=== PATIENT | female | born 1950 | race Caucasian/White ===

== ENCOUNTER 2017-11-04 07:19 | Emergency (ER) | payer OTHER ==
--- OUTSIDE RECORDS SUMMARY | 2017-11-04 07:21 | XMS REPORT ---
:1950 Author Organization eClinicalWorks Care Team Providers Name Role Phone Butts, Na Provider Role Unavailable Allergies No Known Allergies Problems Problem Type Condition Code Onset Dates Condition Status Problem Hiatal hernia K44.9 Active Problem Weight gain R63.5 Active Problem Chronic kidney disease (CKD) N18.9 Active Problem Mixed hyperlipidemia E78.2 Active Problem Essential tremor G25.0 Active Problem Former smoker Z87.891 Active Problem Diverticulitis of large intestine K57.32 Active without perforation or abscess without bleeding Problem DERICK positive R76.8 Active Problem Elevated antinuclear antibody (DERICK) R76.8 Active level Problem Esophageal stenosis K22.2 Active Problem Hyperlipidemia E78.5 Active Problem Obstructive sleep apnea G47.33 Active Problem Osteopenia M85.80 Active Problem Gastro-esophageal reflux disease K21.9 Active without esophagitis Problem Sexual dysfunction R37 Active Problem Depression with anxiety F41.8 Active Medications Medication Code System Code Instructions Start Date End Date Status Dosage Zetia [facility] 00767823754 10 MG Orally Once Apr 03, Active 1 tablet a day 2017 Results No Known Results Summary Purpose eClinicalWorks Submission
--- OUTSIDE RECORDS SUMMARY | 2017-11-04 07:21 | XMS REPORT ---
[...] with anxiety F41.8 Active Medications Medication Code Code Instructions Start End Date Status Dosage System Date Simvastatin [facility] 55739722041 10 MG Orally September 19, Active 1 tablet in Once a day 2018 the evening Results No Known Results Summary Purpose eClinicalWorks Submission
--- OUTSIDE RECORDS SUMMARY | 2017-11-04 07:21 | XMS REPORT ---
[...] Problem Depression with anxiety F41.8 Active Medications No Known Medications Results No Known Results Summary Purpose [employer] Submission
--- OUTSIDE RECORDS SUMMARY | 2017-11-04 07:21 | XMS REPORT ---
:1950 Author Organization eClinicalWorks Care Team Providers Name Role Phone Butts, Na Provider Role Unavailable Allergies, Adverse Reactions, Alerts Substance Reaction Event Type statin Info Not Available Drug Allergy codeine Info Not Available Drug Allergy Problems Problem Type Condition Code Onset Dates [...] Active level Problem Esophageal stenosis K22.2 Active Assessment Depression with anxiety F41.8 Active Assessment Hyperlipidemia E78.5 Active Assessment Former smoker Z87.891 Active Assessment Prediabetes R73.09 Active Problem Hyperlipidemia E78.5 Active Problem Obstructive sleep apnea G47.33 Active Problem Osteopenia M85.80 Active Problem Gastro-esophageal reflux disease K21.9 Active without esophagitis Problem Sexual dysfunction R37 Active Problem Depression with anxiety F41.8 Active Medications Medication Code System Code Instructions Start End Date Status Dosage Date Livalo [facility] 27912171956 4 MG Orally Once Active 1 tablet a day Viibryd [facility] 15069834512 20 MG Orally Mar 26, Active 1 tablet Once a day 2018 with food Primidone [facility] 78596229211 50 MG Orally Active not defined Inderal LA ND 57165542190 80 MG Orally Active 1 capsule Once a day Zetia ND 60861187946 10 MG Orally Apr 03, Active 1 tablet Once a day 2018 Protonix ND 98772736514 20 MG Orally Active 1 tablet Once a day Zocor ND 00319637199 10 MG Orally Apr 10, Active 1 tablet in Once a day 2018 the evening Prozac ND 50916919972 10 MG Orally Mar 26, Active 1 capsule Once a day 2018 in the morning Results No Known Results Summary Purpose eClinicalWorks Submission
--- OUTSIDE RECORDS SUMMARY | 2017-11-04 07:21 | XMS REPORT ---
[...] Active Assessment Depression with anxiety F41.8 Active Problem Hyperlipidemia E78.5 Active Problem Obstructive sleep apnea G47.33 Active Problem Osteopenia M85.80 Active Problem Gastro-esophageal reflux disease K21.9 Active without esophagitis Problem Sexual dysfunction R37 Active Problem Depression with anxiety F41.8 Active Medications Medication Code System Code Instructions Start End Date Status D[facility] MG Orally Mar 26, Active 1 capsule Once a day 2018 in the morning Results No Known Results Summary Purpose eClinicalWorks Submission
--- OUTSIDE RECORDS SUMMARY | 2017-11-04 07:21 | XMS REPORT ---
[...] anxiety F41.8 Active Assessment Hyperlipidemia E78.5 Active Problem Hyperlipidemia E78.5 Active Problem Obstructive sleep apnea G47.33 Active Problem Osteopenia M85.80 Active Problem Gastro-esophageal reflux disease K21.9 Active without esophagitis Problem Sexual dysfunction R37 Active Problem Depression with anxiety F41.8 Active Medications Medication Code System Code Instructions Start End Date Status Dosage Date Prozac ND 26974955609 10 MG Orally Mar 26, Active 1 capsule Once a day 2018 in the morning Zocor NDC 46236775664 10 MG Orally Apr 10, Active 1 tablet in Once a day 2018 the evening Results No Known Results Summary Purpose eClinicalWorks Submission
--- OUTSIDE RECORDS SUMMARY | 2017-11-04 07:21 | XMS REPORT | Clinical Summary ---
:1950 Author Organization [facility] Address [address] [place] [address] Care Team Providers Name Role Phone Asked, No Pcp Primary Care Provider Unavailable Allergies No Known Allergies Current Medications Prescription Sig. Disp. Refills Start Date End Date Status FLUoxetine (PROzac) 20 MG Take 20 mg by Active capsule mouth nightly. primidone (MYSOLINE) 50 MG Take 50 mg by Active tablet mouth 4 (four) times a day. propranolol (INDERAL) 60 Take 60 mg by Active MG tablet mouth nightly. pantoprazole (PROTONIX) 20 Take 20 mg by Active MG EC tablet mouth nightly. pitavastatin 4 mg tablet Take 4 mg by mouth Active nightly. Active Problems No known active problems Social History Tobacco Use Types Packs/Day Years Used Date Former Smoker Cigarettes 1 35 Quit: 08/2015 Alcohol Use Drinks/Week oz/Week Comments Yes socially Sex Assigned at Date Recorded Not on file Last Filed Vital Signs Not on file Plan of Treatment Health Maintenance Due Date Last Done Comments BREAST CANCER SCREENING 2000 COLON CANCER SCREENING 2000 SHINGRIX VACCINE (#1) 2000 ZOSTER VACCINE 2010 PNEUMOCOCCAL POLYSACCHARIDE VACCINE AGE 65 AND OVER 10/25/2015 PNEUMOCOCCAL-13 10/25/2015 INFLUENZA VACCINE 10/02/2017 Results Not on fileafter 11/03/2016 Insurance Payer Benefit Plan / Group Subscriber ID Type Phone Address MEDICARE MEDICARE PART A AND B xxxxxxxxxx Medicare [place], [place] A[employer] xxxxxxxxxx [email or web address] Home: Duong DALY [phone] [address]
--- NOTE | 2017-11-04 08:11 | RAD REPORT ---
EXAM DESCRIPTION: RAD - Chest Single View - 11/04/2017 8:01 am CLINICAL HISTORY: left rib pain<Reason For Exam>left rib pain Trip and fall, left-sided chest and rib pain COMPARISON: Chest Pa And Lat (2 Views) dated 07/26/2017; CHEST PA AND LAT 2 VIEW dated 01/24/2015; CH EST PA AND LAT 2 VIEW dated 01/12/2010; CHEST PA AND LAT 2 VIEW dated 09/22/1993<Comparisons> TECHNIQUE: AP portable chest image was obtained 0748 hours . FINDINGS: Lungs are clear. Heart and vasculature are normal. No measurable pleural effusion and no p neumothorax. No gross bone deformity seen. Concern for rib fracture can be addressed with dedicated i maging. Patient has a moderate-sized hiatal hernia. No acute aortic findings suspected. IMPRESSION: No acute cardiopulmonary process. Concerns for rib fracture can be addressed with directed imaging.
--- NOTE | 2017-11-04 08:13 | RAD REPORT ---
EXAM DESCRIPTION: RAD - Ribs Left - 11/04/2017 8:06 am CLINICAL HISTORY: PAIN<Reason For Exam>PAIN COMPARISON: Chest Single View dated 11/04/2017<Comparisons> None. FINDINGS: Nondisplaced lateral left fifth, sixth and seventh rib fractures noted. Nondisplaced fract ure of the fourth rib is possible as well. No pathologic rib process. No pneumothorax or pleural fluid collection. No pulmonary contusion. Heart size is normal. No mediastinal abnormality. Moderate hiatal hernia present. IMPRESSION: Multiple lateral nondisplaced left-sided rib fractures. No pneumothorax, pulmonary contusion or pleural fluid/ blood collection.
[2017-11-04] MEDS ORDERED: HYDROCODONE/APAP 10/325 TAB ONE (08:18)
--- NOTE | 2017-11-04 09:10 | EDPHYS ---
Physician Documentation [facility] Name: Suzanne Mckenzie Age: 67 yrs Sex: Female : 1950 Arrival Date: 11/04/2017 Time: 07:22 Bed 20 Private MD: Rohit Shaikh T ED Physician Mk Braswell HPI: 11/04 07:45 This 67 yrs old Female presents to ER via Ambulatory with complaints of Fall pm1 Injury. 07:45 Details of fall: The patient fell from an upright position, while walking. Onset: The pm1 symptoms/episode began/occurred 13 day(s) ago, 10/23/2017. Associated injuries: The patient sustained left rib cage - left lateral axillary to medial aspect of left breast. Severity of symptoms: in the emergency department the symptoms are actually worse. The patient has not experienced similar symptoms in the past. The patient has not recently seen a physician. Patient was walking in the kitchen and slipped on floor. Patient landed on her left side and arm with the left arm tucked against her. No head injury, headache, LOC, or neck pain. Historical: - Allergies: 07:27 No Known Drug Allergies; hj - Home Meds: 07:27 primidone 50 mg oral tab 1 tabs twice a day [Active]; Inderal LA Oral once daily hj [Active]; 07:30 Lexapro Oral [Active]; Zocor Oral [Active]; hj - PMHx: 07:27 tremors; hj - PSHx: 07:27 None; hj - Immunization history:: Adult Immunizations up to date. - Social history:: Smoking status: Patient/guardian denies using tobacco, Patient/guardian denies using alcohol. - Ebola Screening: : Patient negative for fever greater than or equal to 101.5 degrees Fahrenheit, and additional compatible Ebola Virus Disease symptoms Patient denies exposure to infectious person Patient denies travel to an Ebola-affected area in the 21 days before illness onset. ROS: 08:00 Constitutional: Negative for fever, chills, and weight loss, Eyes: Negative for injury, pm1 pain, redness, and discharge, ENT: Negative for injury, pain, and discharge, Neck: Negative for injury, pain, and swelling, Cardiovascular: Negative for chest pain, palpitations, and edema, Respiratory: Negative for shortness of breath, cough, wheezing, and pleuritic chest pain, Abdomen/GI: Negative for abdominal pain, nausea, vomiting, diarrhea, and constipation, Back: Negative for injury and pain, : Negative for injury, bleeding, discharge, and swelling, MS/Extremity: Negative for injury and deformity, Skin: Negative for injury, rash, and discoloration, Neuro: Negative for headache, weakness, numbness, tingling, and seizure. Exam: 08:00 Constitutional: This is a well developed, well nourished patient who is awake, alert, pm1 and in no acute distress. Head/Face: Normocephalic, atraumatic. Eyes: Pupils equal round and reactive to light, extra-ocular motions intact. Lids and lashes normal. Conjunctiva and sclera are non-icteric and not injected. Cornea within normal limits. Periorbital areas with no swelling, redness, or edema. ENT: Nares patent. No nasal discharge, no septal abnormalities noted. Tympanic membranes are normal and external auditory canals are clear. Oropharynx with no redness, swelling, or masses, exudates, or evidence of obstruction, uvula midline. Mucous membranes moist. Neck: Trachea midline, no thyromegaly or masses palpated, and no cervical lymphadenopathy. Supple, full range of motion without nuchal rigidity, or vertebral point tenderness. No Meningismus. 08:00 Cardiovascular: Regular rate and rhythm with a normal S1 and S2. No gallops, murmurs, or rubs. Normal PMI, no JVD. No pulse deficits. Respiratory: Lungs have equal breath sounds bilaterally, clear to auscultation and percussion. No rales, rhonchi or wheezes noted. No increased work of breathing, no retractions or nasal flaring. Abdomen/GI: Soft, non-tender, with normal bowel sounds. No distension or tympany. No guarding or rebound. No evidence of tenderness throughout. Back: No spinal tenderness. No costovertebral tenderness. Full range of motion. Skin: Warm, dry with normal turgor. Normal color with no rashes, no lesions, and no evidence of cellulitis. MS/ Extremity: Pulses equal, no cyanosis. Neurovascular intact. Full, normal range of motion. 08:00 Chest/axilla: Inspection: normal, Palpation: crepitus, is not appreciated, tenderness, of the left lateral anterior chest. 08:00 Neuro: Orientation: is normal, Motor: moves all fours. Vital Signs: 07:28 BP 139 / 80; Pulse 83; Resp 18; Temp 98.4(TE); Pulse Ox 97% on R/A; Weight 89.81 kg; hj Height 5 ft. 3 in. (160.02 cm); Pain 8/10; 07:28 Body Mass Index 35.07 (89.81 kg, 160.02 cm) hj MDM: 07:34 Patient medically screened. pm1 08:36 Data reviewed: vital signs. Data interpreted: Pulse oximetry: on room air is 97 %. pm1 Interpretation: normal. Counseling: I had a detailed discussion with the patient and/or guardian regarding: the historical points, exam findings, and any diagnostic results supporting the discharge/admit diagnosis, radiology results, the need for outpatient follow up, to return to the emergency department if symptoms worsen or persist or if there are any questions or concerns that arise at home. 11/04 07:45 Order name: Chest Single View XRAY; Complete Time: 08:27 pm1 11/04 07:45 Order name: Ribs Left XRAY; Complete Time: 08:27 pm1 11/04 08:37 Order name: Misc. Order: Incentive spirometer; Complete Time: 08:49 pm1 Administered Medications: 08:17 Drug: [place] 10 mg-325 mg 1 tabs Route: PO; iw 09:00 Follow up: Response: No adverse reaction; Pain is decreased iw Disposition: 11/05 08:37 Co-signature as Attending Physician, Mk Braswell MD I agree with the assessment and lita plan of care. Disposition: 11/04/17 08:36 Discharged to Home. Impression: Multiple fractures of ribs, left side. - Condition is Stable. - Discharge Instructions: Rib Fracture, Incentive Spirometer. - Prescriptions for Tylenol- Codeine #3 300-30 mg Oral Tablet - take 2 tablet by ORAL route every 6 hours As needed; 30 tablet. - Medication Reconciliation Form, Thank You Letter, Antibiotic Education, Prescription Opioid Use form. - Follow up: Emergency Department; When: As needed; Reason: Worsening of condition. Follow up: Rohit Shaikh MD; When: 2 - 3 days; Reason: Recheck today's complaints, Continuance of care, Re-evaluation by your physician. - Problem is new. - Symptoms have improved. Signatures: Dispatcher [employer] EDMS Mk Braswell MD MD cha Williams, Irene, RN RN Bryson Murrieta RN RN Rivera Johnston, GUEST SERVICES ATTENDANT GUEST SERVICES ATTENDANT pm1 Corrections: (The following items were deleted from the chart) 11/04 09:09 08:36 11/04/2017 08:36 Discharged to Home. Impression: Multiple fractures of ribs, left iw side. Condition is Stable. Forms are Medication Reconciliation Form, Thank You Letter, Antibiotic Education, Prescription Opioid Use. Follow up: Emergency Department; When: As needed; Reason: Worsening of condition. Follow up: Rohit Shaikh; When: 2 - 3 days; Reason: Recheck today's complaints, Continuance of care, Re-evaluation by your physician. Problem is new. Symptoms have improved. pm1
--- NOTE | 2017-11-04 09:10 | ER ---
Nurse's Notes [facility] Name: Suzanne Mckenzie Age: 67 yrs Sex: Female : 1950 Arrival Date: 11/04/2017 Time: 07:22 Bed 20 Private MD: Rohit Shaikh T Diagnosis: Multiple fractures of ribs, left side Presentation: 11/04 07:23 Presenting complaint: Patient states: i tripped and fell last October 23 at home, and hj hurt the L side of my rib cage, pain is 9/10; denies hitting head and LOC;. Transition of care: patient was not received from another setting of care. Onset of symptoms was November 04, 2017. Risk Assessment: Do you want to hurt yourself or someone else? Patient reports no desire to harm self or others. Initial Sepsis Screen: Does the patient meet any 2 criteria? No. Patient's initial sepsis screen is negative. Does the patient have a suspected source of infection? No. Patient's initial sepsis screen is negative. Care prior to arrival: None. 07:23 Method Of Arrival: Ambulatory 07:23 Acuity: MUNIR 4 hj Triage Assessment: 07:28 General: Appears in no apparent distress. uncomfortable, Behavior is calm, cooperative, hj appropriate for age. Pain: Complains of pain in left breast. Historical: - Allergies: 07:27 No Known Drug Allergies; hj - Home Meds: 07:27 primidone 50 mg oral tab 1 tabs twice a day [Active]; Inderal LA Oral once daily hj [Active]; 07:30 Lexapro Oral [Active]; Zocor Oral [Active]; hj - PMHx: 07:27 tremors; hj - PSHx: 07:27 None; hj - Immunization history:: Adult Immunizations up to date. - Social history:: Smoking status: Patient/guardian denies using tobacco, Patient/guardian denies using alcohol. - Ebola Screening: : Patient negative for fever greater than or equal to 101.5 degrees Fahrenheit, and additional compatible Ebola Virus Disease symptoms Patient denies exposure to infectious person Patient denies travel to an Ebola-affected area in the 21 days before illness onset. Screenin:28 Abuse screen: Denies threats or abuse. Denies injuries from another. Nutritional hj screening: No deficits noted. Tuberculosis screening: No symptoms or risk factors identified. Fall Risk Fall in past 12 months (25 points). Assessment: 07:45 General: Appears in no apparent distress. Behavior is calm, cooperative. Pain: iw Complains of pain in left lateral posterior chest and left lateral anterior chest Pain currently is 7 out of 10 on a pain scale. Neuro: Level of Consciousness is awake, alert, obeys commands, Oriented to person, place, time, situation. Cardiovascular: Patient's skin is warm and dry. Respiratory: Respiratory effort is even, unlabored, Respiratory pattern is regular, symmetrical. Respiratory: Reports pain with respiration Breath sounds are clear bilaterally. Derm: Skin is intact, is healthy with good turgor. Musculoskeletal: Range of motion: intact in all extremities. 08:31 Reassessment: Patient appears in no apparent distress at this time. Patient and/or iw family updated on plan of care and expected duration. Pain level reassessed. Patient is alert, oriented x 3, equal unlabored respirations, skin warm/dry/pink. Vital Signs: 07:28 BP 139 / 80; Pulse 83; Resp 18; Temp 98.4(TE); Pulse Ox 97% on R/A; Weight 89.81 kg; hj Height 5 ft. 3 in. (160.02 cm); Pain 8/10; 07:28 Body Mass Index 35.07 (89.81 kg, 160.02 cm) ED Course: 07:22 Patient arrived in ED. sb2 07:23 Rohit Shaikh MD is Private Physician. sb2 07:25 Triage completed. hj 07:28 Arm band placed on left wrist. hj 07:28 Patient has correct armband on for positive identification. Bed in low position. Call light in reach. Side rails up X 1. 07:33 Rivera Devries NP is PHCP. pm1 07:33 Angel Subramanian MD is Attending Physician. pm1 07:46 Kalpana Barrett, MARICEL is Primary Nurse. iw 08:00 Chest Single View XRAY In Process Unspecified. EDMS 08:00 Ribs Left XRAY In Process Unspecified. EDMS 08:36 Rohit Shaikh MD is Referral Physician. pm1 08:38 Mk Braswell MD is Attending Physician. pm1 09:02 No provider procedures requiring assistance completed. Patient did not have IV access iw during this emergency room visit. Administered Medications: 08:17 Drug: [place] 10 mg-325 mg 1 tabs Route: PO; iw 09:00 Follow up: Response: No adverse reaction; Pain is decreased iw Outcome: 08:36 Discharge ordered by . pm1 09:09 Discharged to home via wheelchair, with family. iw 09:09 Condition: good 09:09 Discharge instructions given to patient, Instructed on discharge instructions, follow up and referral plans. medication usage, Demonstrated understanding of instructions, follow-up care, medications, Prescriptions given X 1. 09:09 Patient left the ED. iw Signatures: Dispatcher [employer] EDMS Kalpana Barrett RN RN iw Bryson Rivero RN RN Rivera Devries, ANDRY CHIEF DATA OFFICER pm1 Isamar Willis sb2 Corrections: (The following items were deleted from the chart) 07:47 07:23 Presenting complaint: Patient states: i tripped and fell last October 03 at home, iw and hurt the L side of my rib cage, pain is 9/10; denies hitting head and LOC; hj
[2017-11-04 09:17] VITALS: BP 139/80; TEMP 98.4; O2SAT 97
== END 2017-11-04 09:09 | disposition home or self-care (01) ==
LOC: ER 07:19
DX: S22.42XA Multiple fractures of ribs, left side, initial encounter for closed fracture (principal); W01.0XXA Fall on same level from slipping, tripping and stumbling without subsequent striking against object, initial encounter; Y92.000 Kitchen of unspecified non-institutional (private) residence as the place of occurrence of the external cause
CPT/HCPCS: 71045; 99283

== ENCOUNTER 2017-12-21 08:38 | Emergency (ER) | payer OTHER ==
--- OUTSIDE RECORDS SUMMARY | 2017-12-21 08:40 | XMS REPORT | Clinical Summary ---
:1950 Author Organization [facility] Address [address] [place] [address] Care Team Providers Name Role Phone Asked, [...] INFLUENZA VACCINE 10/02/2017 Results Not on fileafter 12/20/2016 Insurance Payer Benefit Plan / Group Subscriber ID Type Phone Address MEDICARE MEDICARE PART A AND B xxxxxxxxxx Medicare [place], [place] AETNA [place] [employer] OF xxxxxxxxxx [employer] Home: Duong DALY [phone] [address]
--- OUTSIDE RECORDS SUMMARY | 2017-12-21 08:40 | XMS REPORT ---
[...] Start End Date Status Dosage Date Livalo [facility] 75640373871 4 MG Orally Once Active 1 tablet a day Viibryd [facility] 46643490424 20 MG Orally Mar 26, Active 1 tablet Once a day 2018 with food Primidone [facility] 89226979838 50 MG Orally Active not defined Inderal LA ND 01029286108 80 MG Orally Active 1 capsule Once a day Zetia ND 96081017628 10 MG Orally Apr 03, Active 1 tablet Once a day 2018 Protonix ND 60644322205 20 MG Orally Active 1 tablet Once a day Zocor ND 81355159413 10 MG Orally Apr 10, Active 1 tablet in Once a day 2018 the evening Prozac ND 68871617715 10 MG Orally Mar 26, Active 1 capsule Once a day 2018 in the morning Results No Known Results Summary Purpose eClinicalWorks Submission
--- OUTSIDE RECORDS SUMMARY | 2017-12-21 08:41 | XMS REPORT ---
[...] End Date Status Dosage Date Prozac ND 90122564120 10 MG Orally Mar 26, Active 1 capsule Once a day 2018 in the morning Zocor NDC 40756751991 10 MG Orally Apr 10, Active 1 tablet in Once a day 2018 the evening Results No Known Results Summary Purpose eClinicalWorks Submission
--- OUTSIDE RECORDS SUMMARY | 2017-12-21 08:41 | XMS REPORT ---
[...] End Date Status Dosage System Date Simvastatin [facility] 69201824497 10 MG Orally September 19, Active 1 tablet in Once a day 2018 the evening Results No Known Results Summary Purpose eClinicalWorks Submission
--- OUTSIDE RECORDS SUMMARY | 2017-12-21 08:41 | XMS REPORT ---
[...] Start Date End Date Status Dosage Zetia [facility] 48383912996 10 MG Orally Once Apr 03, Active 1 tablet a day 2017 Results No Known Results Summary Purpose eClinicalWorks Submission
--- OUTSIDE RECORDS SUMMARY | 2017-12-21 08:41 | XMS REPORT ---
[...] Instructions Start End Date Status [facility] 9[facility] MG Orally Mar 26, Active 1 capsule Once a day 2018 in the morning Results No Known Results Summary Purpose eClinicalWorks Submission
--- OUTSIDE RECORDS SUMMARY | 2017-12-21 08:41 | XMS REPORT ---
[...] Medications Results No Known Results Summary Purpose Mobile Location, IP Submission
[2017-12-21] MEDS ORDERED: NA CHLORIDE 0.9% 1,000 ML ONE (09:09)
[2017-12-21 09:19] LABS: Absolute Monocytes 0.8 K/uL (0.1-1.3); Absolute Neutrophil 7.6 K/uL (1.8-8.0); Basophils % 0.6 % (0-1.3); Eosinophils % 0.8 % (0-4.4); Hematocrit 41.5 % (36.0-45.0); Lymphocytes % 10.1 % (15.3-44.8); MCH 24.5 pg (27.0-35.0); MCV 74.9 fL (80-100); MPV 8.6 fL (7.6-11.3); Monocytes % 8.2 % (3.3-12.3); RBC Red Blood Cell Count 5.55 M/uL (3.86-4.86)
[2017-12-21 09:37] LABS: Anisocytosis 1+; Blood Morphology Comment NOTED (NOT SEEN); Platelet Estimate ADEQ; Poikilocytosis 1+; Polychromasia 1+; Urine White Blood Cell Casts OK
[2017-12-21 09:38] LABS: C-Reactive Protein 35.9 mg/L (<3.00); Potassium 3.8 mmol/L (3.5-5.1)
--- NOTE | 2017-12-21 10:25 | RAD REPORT ---
EXAM DESCRIPTION: CT - Soft Tissue Neck W/Contr - 12/21/2017 10:00 am CLINICAL HISTORY: Neck pain and neck swelling COMPARISON: None. TECHNIQUE: Computed axial tomography of the neck was obtained. 50 cc Isovue-300 administered intrave nously. Coronal and sagittal reconstruction was performed All CT scans are performed using dose optimization technique as appropriate and may include automated exposure control or mA/KV adjustment according to patient size. FINDINGS: The parotid and submandibular glands appear enlarged with increased density. Mild strandi ng is seen within the adjacent fat. The pharynx, larynx, tongue base and subglottic trachea appear unremarkable. No lymphadenopathy is seen. IMPRESSION: Enlargement of the parotid and submandibular glands with increased density . The differe ntial includes autoimmune disorders, inflammatory and systemic processes
--- NOTE | 2017-12-21 11:01 | EDPHYS ---
Physician Documentation [facility] Name: Suzanne Mckenzie Age: 67 yrs Sex: Female : 1950 Arrival Date: 12/21/2017 Time: 08:39 Bed 7 Private MD: ED Physician Johnson Rm HPI: 12/21 10:55 This 67 yrs old Female presents to ER via Ambulatory with complaints of Sore snw Throat. 10:55 The patient presents with swelling. The patient describes throat pain as constant. snw Onset: The symptoms/episode began/occurred suddenly, last night. Severity of symptoms: At their worst the symptoms were moderate, severe, in the emergency department the symptoms have improved, mildly. Associated signs and symptoms: The patient has no apparent associated signs or symptoms. The patient has not experienced similar symptoms in the past. had fillers injected this week, mandibular and anterior cervical lymphadenopathy followed. Historical: - Allergies: 09:00 No Known Allergies; ss - Home Meds: 09:00 primidone 50 mg Oral tab 1 tabs twice a day [Active]; Zocor Oral [Active]; Symbalta ss [Active]; Propranolol Oral [Active]; - PMHx: 09:00 tremors; ss - Immunization history:: Adult Immunizations up to date. - Social history:: Smoking status: Patient/guardian denies using tobacco. - Ebola Screening: : Patient denies exposure to infectious person Patient denies travel to an Ebola-affected area in the 21 days before illness onset. ROS: 09:11 Constitutional: Negative for fever, chills, and weight loss, Eyes: Negative for injury, snw pain, redness, and discharge, ENT: Negative for injury, pain, and discharge, Neck: Negative for injury, pain, + swelling, Cardiovascular: Negative for chest pain, palpitations, and edema, Respiratory: Negative for shortness of breath, cough, wheezing, and pleuritic chest pain, Abdomen/GI: Negative for abdominal pain, nausea, vomiting, diarrhea, and constipation, Back: Negative for injury and pain, : Negative for injury, bleeding, discharge, and swelling, MS/Extremity: Negative for injury and deformity, Skin: Negative for injury, rash, and discoloration, Neuro: Negative for headache, weakness, numbness, tingling, and seizure, Psych: Negative for depression, anxiety, suicide ideation, homicidal ideation, and hallucinations. Exam: 09:10 Constitutional: This is a well developed, well nourished patient who is awake, alert, snw and in no acute distress. Eyes: Pupils equal round and reactive to light, extra-ocular motions intact. Lids and lashes normal. Conjunctiva and sclera are non-icteric and not injected. Cornea within normal limits. Periorbital areas with no swelling, redness, or edema. ENT: Nares patent. No nasal discharge, no septal abnormalities noted. Tympanic membranes are normal and external auditory canals are clear. Oropharynx with no redness, swelling, or masses, exudates, or evidence of obstruction, uvula midline. Mucous membranes moist. Chest/axilla: Normal chest wall appearance and motion. Nontender with no deformity. No lesions are appreciated. Cardiovascular: Regular rate and rhythm with a normal S1 and S2. No gallops, murmurs, or rubs. Normal PMI, no JVD. No pulse deficits. Respiratory: Lungs have equal breath sounds bilaterally, clear to auscultation and percussion. No rales, rhonchi or wheezes noted. No increased work of breathing, no retractions or nasal flaring. Abdomen/GI: Soft, non-tender, with normal bowel sounds. No distension or tympany. No guarding or rebound. No evidence of tenderness throughout. Back: No spinal tenderness. No costovertebral tenderness. Full range of motion. Skin: Warm, dry with normal turgor. Normal color with no rashes, no lesions, and no evidence of cellulitis. MS/ Extremity: Pulses equal, no cyanosis. Neurovascular intact. Full, normal range of motion. Neuro: Awake and alert, GCS 15, oriented to person, place, time, and situation. Cranial nerves II-XII grossly intact. Motor strength 5/5 in all extremities. Sensory grossly intact. Cerebellar exam normal. Normal gait. Psych: Awake, alert, with orientation to person, place and time. Behavior, mood, and affect are within normal limits. 09:10 Head/face: Noted is swelling, that is moderate, of the right mandible and left mandible. 09:10 Neck: External neck: is normal, C-spine: appears grossly normal, Thyroid: appears normal, Trachea: is midline with no obvious abnormalities, ROM/movement: no acute changes, Lymph nodes: lymphadenopathy is appreciated, anterior cervical nodes, submandibular nodes. Vital Signs: 09:00 BP 109 / 51; Pulse 95; Resp 16; Temp 100.0(O); Pulse Ox 98% on R/A; Weight 83.01 kg; ss Height 5 ft. 3 in. (160.02 cm); Pain 4/10; 10:00 BP 102 / 62; Pulse 88; Resp 16; Pulse Ox 100% ; hb 09:00 Body Mass Index 32.42 (83.01 kg, 160.02 cm) ss MDM: 08:43 Patient medically screened. snw 11:03 Data reviewed: vital signs, nurses notes. Data interpreted: Pulse oximetry: on room air snw is 98 %. Interpretation: normal. Counseling: I had a detailed discussion with the patient and/or guardian regarding: the historical points, exam findings, and any diagnostic results supporting the discharge/admit diagnosis, lab results, radiology results, the need for outpatient follow up, to return to the emergency department if symptoms worsen or persist or if there are any questions or concerns that arise at home. Special discussion: I discussed in detail with the patient the higher chance of wound infection based on his presenting history. Based on the history and exam findings, there is no indication for further emergent testing or inpatient evaluation. I discussed with the patient/guardian the need to see the plastic surgeon for further evaluation of the symptoms. I discussed with the patient/guardian the need to see the primary care provider for further evaluation of the symptoms. 12/21 08:42 Order name: Strep; Complete Time: 09:34 snw 12/21 08:55 Order name: CBC with Diff; Complete Time: 09:49 snw 12/21 08:55 Order name: Chem 7; Complete Time: 09:49 snw 12/21 08:55 Order name: CRP; Complete Time: 09:49 snw 12/21 08:55 Order name: Blood Culture* snw 12/21 09:21 Order name: CBC Smear Scan; Complete Time: 09:49 EDMS 12/21 08:55 Order name: CT Soft Tissue Neck W/contr; Complete Time: 10:29 snw 12/21 09:36 Order name: Throat Culture EDMS Administered Medications: 09:10 Drug: NS 0.9% 1000 ml Route: IV; Rate: 75 ml/hr; Site: right antecubital; bp 11:05 Drug: Rocephin 1 grams Route: IV; Rate: calculated rate; Site: right antecubital; bp 11:05 Drug: Decadron - Dexamethasone 10 mg Route: IVP; Site: right antecubital; bp Disposition: 12:12 Co-signature as Attending Physician, Johnson Rm MD I agree with the assessment and kdr plan of care. Disposition: 12/21/17 11:01 Discharged to Home. Impression: Inflammatory conditions of jaws. - Condition is Stable. - Discharge Instructions: Lymphadenopathy. - Prescriptions for Amoxicillin 500 mg Oral Capsule - take 1 capsule by ORAL route every 8 hours for 10 days; 30 tablet. Diclofenac Sodium 75 mg Oral Tablet Sustained Release - take 1 tablet by ORAL route 2 times per day; 30 tablet. - Medication Reconciliation Form, Thank You Letter, Antibiotic Education, Prescription Opioid Use form. - Follow up: Private Physician; When: 2 - 3 days; Reason: Recheck today's complaints, Continuance of care, Re-evaluation by your physician. Follow up: Emergency Department; When: As needed; Reason: Worsening of condition. Signatures: Dispatcher [employer] EDME Johnson Rm MD MD [facility] Agnieszka Pearson, PRESS WASHER-C PRESS WASHER-Csnw Shavonne Walton RN RN Alivia Lloyd, MARICEL CONNELLY Nico Leos, MARICEL RN bp Corrections: (The following items were deleted from the chart) 11:29 11:01 12/21/2017 11:01 Discharged to Home. Impression: Inflammatory conditions of jaws. hb Condition is Stable. Forms are Medication Reconciliation Form, Thank You Letter, Antibiotic Education, Prescription Opioid Use. Follow up: Private Physician; When: 2 - 3 days; Reason: Recheck today's complaints, Continuance of care, Re-evaluation by your physician. Follow up: Emergency Department; When: As needed; Reason: Worsening of condition. snw
--- NOTE | 2017-12-21 11:01 | ER ---
Nurse's Notes [facility] Name: Suzanne Mckenzie Age: 67 yrs Sex: Female : 1950 Arrival Date: 12/21/2017 Time: 08:39 Bed 7 Private MD: Diagnosis: Inflammatory conditions of jaws Presentation: 12/21 08:42 Presenting complaint: Patient states: swelling to neck that began yesterday afternoon. ss Denies difficulty swallowing/ breathing. PT reports she had injections to each side of her mouth 10 days ago and is unsure if that may be a factor. Transition of care: patient was not received from another setting of care. Onset of symptoms was December 20, 2017. Risk Assessment: Do you want to hurt yourself or someone else? Patient reports no desire to harm self or others. Initial Sepsis Screen: Does the patient meet any 2 criteria? No. Patient's initial sepsis screen is negative. Does the patient have a suspected source of infection? No. Patient's initial sepsis screen is negative. Care prior to arrival: None. 08:42 Method Of Arrival: Ambulatory ss 08:42 Acuity: MUNIR 3 ss Historical: - Allergies: 09:00 No Known Allergies; ss - Home Meds: 09:00 primidone 50 mg Oral tab 1 tabs twice a day [Active]; Zocor Oral [Active]; Symbalta ss [Active]; Propranolol Oral [Active]; - PMHx: 09:00 tremors; ss - Immunization history:: Adult Immunizations up to date. - Social history:: Smoking status: Patient/guardian denies using tobacco. - Ebola Screening: : Patient denies exposure to infectious person Patient denies travel to an Ebola-affected area in the 21 days before illness onset. Screenin:15 Abuse screen: Denies threats or abuse. Denies injuries from another. Nutritional hb screening: No deficits noted. Tuberculosis screening: No symptoms or risk factors identified. Fall Risk None identified. Assessment: 09:00 General: Appears in no apparent distress. Behavior is calm, cooperative. Pain: Pain hb currently is 4 out of 10 on a pain scale. Neuro: Level of Consciousness is awake, alert, obeys commands, Oriented to person, place, time, situation. Cardiovascular: Capillary refill < 3 seconds Patient's skin is warm and dry. Respiratory: Airway is patent Trachea midline Respiratory effort is even, unlabored, Respiratory pattern is regular, symmetrical, Breath sounds are clear bilaterally. GI: No signs and/or symptoms were reported involving the gastrointestinal system. : No signs and/or symptoms were reported regarding the genitourinary system. EENT: Throat is clear. Derm: No signs and/or symptoms reported regarding the dermatologic system. Skin is intact, is healthy with good turgor, Skin is pink, warm \T\ dry. Musculoskeletal: No signs and/or symptoms reported regarding the musculoskeletal system. 10:00 Reassessment: Patient appears in no apparent distress at this time. Patient and/or hb family updated on plan of care and expected duration. Pain level reassessed. Patient is alert, oriented x 3, equal unlabored respirations, skin warm/dry/pink. 11:00 Reassessment: Patient appears in no apparent distress at this time. Patient and/or hb family updated on plan of care and expected duration. Pain level reassessed. Patient is alert, oriented x 3, equal unlabored respirations, skin warm/dry/pink. Vital Signs: 09:00 BP 109 / 51; Pulse 95; Resp 16; Temp 100.0(O); Pulse Ox 98% on R/A; Weight 83.01 kg; ss Height 5 ft. 3 in. (160.02 cm); Pain 4/10; 10:00 BP 102 / 62; Pulse 88; Resp 16; Pulse Ox 100% ; hb 09:00 Body Mass Index 32.42 (83.01 kg, 160.02 cm) ED Course: 08:39 Patient arrived in ED. tw3 08:42 Agnieszka Pearson [facility]C [facility] snw 08:42 Johnson Rm MD is Attending Physician. snw 08:42 Nico Leos, MARICEL is Primary Nurse. bp 08:57 Triage completed. ss 09:00 Arm band placed on right wrist. ss 09:00 Patient has correct armband on for positive identification. Bed in low position. Call hb light in reach. Side rails up X 1. 09:09 Inserted saline lock: 20 gauge in right antecubital area, using aseptic technique. hb Blood collected. 10:00 CT Soft Tissue Neck W/contr In Process Unspecified. EDMS 10:00 CT completed. Patient moved to CT via wheelchair. Patient moved back from CT. cw1 11:29 No provider procedures requiring assistance completed. IV discontinued, intact, hb bleeding controlled, No redness/swelling at site. Pressure dressing applied. Administered Medications: 09:10 Drug: NS 0.9% 1000 ml Route: IV; Rate: 75 ml/hr; Site: right antecubital; bp 11:05 Drug: Rocephin 1 grams Route: IV; Rate: calculated rate; Site: right antecubital; bp 11:05 Drug: Decadron - Dexamethasone 10 mg Route: IVP; Site: right antecubital; bp Outcome: 11: Discharge ordered by MD. villegas 11:29 Discharged to home ambulatory. hb 11:29 Condition: stable 11:29 Discharge instructions given to patient, Instructed on discharge instructions, follow up and referral plans. medication usage, Demonstrated understanding of instructions, follow-up care, medications, Prescriptions given X 2. 11:29 Patient left the ED. Signatures: Dispatcher [employer] EDMS Agnieszka Pearson, FEED RESEARCH AIDE-C FEED RESEARCH AIDE-Csnw Shavonne Walton, Delmi Ronquillo RN cw1 Alivia Lloyd, MARICEL RN Karen Mireles tw3 Nico Leos, RN RN bp
[2017-12-21] MEDS ORDERED: NA CHLORIDE 0.9% 100 ML IV ONE (11:05)
[2017-12-21] MEDS ORDERED: DEXAMETHASONE 10 MG/ML VIAL ONE (11:05)
[2017-12-21] MEDS ORDERED: CEFTRIAXONE 1000 MG/VIAL ONE (11:05)
[2017-12-21 11:44] VITALS: TEMP 100
[2017-12-21 11:45] VITALS: BP 102/62; O2SAT 100
== END 2017-12-21 11:29 | disposition home or self-care (01) ==
LOC: ER 08:38
DX: M27.2 Inflammatory conditions of jaws (principal)
CPT/HCPCS: 36415; 70491; 80048; 85025; 86140; 87040 ×2; 87070; 87081; 96374; 96375; 99284; J1100; J7030; Q9967

== ENCOUNTER 2018-06-01 07:30 | Emergency (ER) | payer OTHER ==
--- OUTSIDE RECORDS SUMMARY | 2018-06-01 07:33 | XMS REPORT ---
[...] Instructions Start End Date [facility] MG Orally Mar 26, Active 1 capsule Once a day 2018 in the morning Results No Known Results Summary Purpose eClinicalWorks Submission
--- OUTSIDE RECORDS SUMMARY | 2018-06-01 07:33 | XMS REPORT ---
[...] Date End Date Status Dosage Zetia [facility] 56672879733 10 MG Orally Once Apr 03, Active 1 tablet a day 2017 Results No Known Results Summary Purpose eClinicalWorks Submission
--- OUTSIDE RECORDS SUMMARY | 2018-06-01 07:33 | XMS REPORT ---
[...] Start End Date Status Dosage Date Livalo [facility] 99793991778 4 MG Orally Once Active 1 tablet a day Viibryd [facility] 65745762493 20 MG Orally Mar 26, Active 1 tablet Once a day 2018 with food Primidone [facility] 01853922520 50 MG Orally Active not defined Inderal [place] ND 56055303482 80 MG Orally Active 1 capsule Once a day Zetia ND 18469190661 10 MG Orally Apr 03, Active 1 tablet Once a day 2018 Protonix ND 09077189254 20 MG Orally Active 1 tablet Once a day Zocor ND 69289218624 10 MG Orally Apr 10, Active 1 tablet in Once a day 2018 the evening Prozac ND 73994673353 10 MG Orally Mar 26, Active 1 capsule Once a day 2018 in the morning Results No Known Results Summary Purpose eClinicalWorks Submission
--- OUTSIDE RECORDS SUMMARY | 2018-06-01 07:33 | XMS REPORT ---
[...] End Date Status Dosage System Date Simvastatin [facility] 01340174333 10 MG Orally September 19, Active 1 tablet in Once a day 2018 the evening Results No Known Results Summary Purpose eClinicalWorks Submission
--- OUTSIDE RECORDS SUMMARY | 2018-06-01 07:33 | XMS REPORT | Clinical Summary ---
:1950 Author Organization [facility] Address [address] [place] [address] Care Team Providers Name Role Phone Asked, No Pcp Primary Care Provider Unavailable Allergies No Known Allergies Medications Medication Sig Dispensed Refills Start Date End Date Status FLUoxetine (PROzac) 20 Take 20 mg by 0 Active MG capsule mouth nightly. primidone (MYSOLINE) 50 Take 50 mg by 0 Active MG tablet mouth 4 (four) times a day. propranolol (INDERAL) 60 Take 60 mg by 0 Active MG tablet mouth nightly. pantoprazole (PROTONIX) Take 20 mg by 0 Active 20 MG EC tablet mouth nightly. pitavastatin 4 mg tablet Take 4 mg by 0 Active mouth nightly. Active Problems No known active problems Social History Tobacco Use Types Packs/Day Years Used Date Former Smoker Cigarettes 1 35 Quit: 08/2015 Alcohol Use Drinks/Week oz/Week Comments Yes socially Sex Assigned at Date Recorded Not on file Job Start Date Occupation Industry Not on file Not on file Not on file Travel History Travel Start Travel End No recent travel history available. Last Filed Vital Signs Not on file Plan of Treatment Health Maintenance Due Date Last Done Comments BREAST CANCER SCREENING 2000 COLON CANCER SCREENING 2000 SHINGLES VACCINES (#1) 2000 65+ PNEUMOCOCCAL VACCINE (1 of 2 - PCV13) 10/25/2015 PNEUMOCOCCAL POLYSACCHARIDE VACCINE AGE 65 AND OVER 10/25/2015 INFLUENZA VACCINE 10/02/2017 Results Not on fileafter 05/31/2017 Insurance Payer Benefit Plan / Group Subscriber ID Type Phone Address MEDICARE MEDICARE PART A AND B xxxxxxxxxx Medicare [place], [place] [employer] OF xxxxxxxxxx Commercial Iddiction Advance Directives Patient has advance care planning documents on file. For more information, please contact:Par[facility] [address] [place] [address]
--- OUTSIDE RECORDS SUMMARY | 2018-06-01 07:33 | XMS REPORT ---
[...] End Date Status Dosage Date Prozac ND 18200645947 10 MG Orally Mar 26, Active 1 capsule Once a day 2018 in the morning Zocor NDC 36956784323 10 MG Orally Apr 10, Active 1 tablet in Once a day 2018 the evening Results No Known Results Summary Purpose eClinicalWorks Submission
--- OUTSIDE RECORDS SUMMARY | 2018-06-01 07:33 | XMS REPORT ---
[...] Medications Results No Known Results Summary Purpose phorus Submission
--- NOTE | 2018-06-01 08:54 | RAD REPORT ---
EXAM DESCRIPTION: RAD - Chest Pa And Lat (2 Views) - 06/01/2018 8:22 am CLINICAL HISTORY: Multiple falls, blunt chest trauma, history of rib fracture COMPARISON: November 04, 2017 TECHNIQUE: PA and lateral views of the chest were obtained. FINDINGS: The lungs are clear of pulmonary contusion or focal lung parenchymal process. Prominent in terstitial markings are stable. Heart size is normal and central vasculature is within normal limit s. No pleural effusion or pneumothorax seen. No acute rib finding identified on standard two view p rotocol. Ribcage could be further evaluated with dedicated rib films as warranted. No aortic abnormality. No free air under the diaphragm. IMPRESSION: No acute cardiopulmonary process.
--- NOTE | 2018-06-01 08:55 | RAD REPORT ---
EXAM DESCRIPTION: RAD - Scapula Right - 06/01/2018 8:25 am CLINICAL HISTORY: Multiple falls, shoulder pain COMPARISON: None. FINDINGS: No scapula fracture identified. No acute findings of the ribs or parenchyma of the upper r ight chest. Right humerus shows no fracture or dislocation. No significant findings at the AC joint. IMPRESSION: Negative right scapula examination
--- NOTE | 2018-06-01 08:55 | RAD REPORT ---
EXAM DESCRIPTION: Shoulder Right 2 View - 06/01/2018 8:22 am CLINICAL HISTORY: Multiple falls, shoulder pain COMPARISON: None. TECHNIQUE: Internal and external rotation views of the right shoulder were obtained. FINDINGS: There is no fracture or dislocation. AC joint is normal in appearance. Acromial humeral j oint space is normal. No soft tissue calcifications. No acute finding of the parenchyma or ribs of th e upper right thorax. IMPRESSION: Negative two-view right shoulder examination for acute finding.
--- NOTE | 2018-06-01 09:01 | EDPHYS ---
Physician Documentation [facility] Name: Suzanne Mckenzie Age: 67 yrs Sex: Female : 1950 Arrival Date: 06/01/2018 Time: 07:35 Bed 20 Private MD: Rohit Shaikh T ED Physician Tc Ibarra HPI: 06/01 07:49 This 67 yrs old Female presents to ER via Ambulatory with complaints of Back rn Pain, Shoulder Pain. 07:50 The patient or guardian complains of an injury, pain. right shoulder and right scapula. rn Context: The problem was sustained at home, resulted from a fall, The patient reports no decreased range of motion. The patient reports no obvious deformity. Onset: The symptoms/episode began/occurred 1 week(s) ago. Modifying factors: the symptoms are alleviated by nothing. The symptoms are aggravated by movement. Severity of symptoms: At their worst the symptoms were mild, in the emergency department the symptoms are unchanged. The patient has experienced similar episodes in the past. Reports fell twice 1 week ago, 2 separate occasions, fell onto side, reports pain to right shoulder and right scapula, reports also diagnosed with shingles on right side as well 1 month ago and unsure if pain is from neuralgia. Wanted to be safe because pain is not improving and last time she fell had several broken ribs. No sob or chest pain, does not feel like when she broke her ribs.. Historical: - Allergies: 07:49 No Known Drug Allergies; tw2 - Home Meds: 07:49 Zocor Oral [Active]; primidone 50 mg Oral tab 1 tabs twice a day [Active]; Inderal LA tw2 Oral once daily [Active]; Lexapro Oral [Active]; Propranolol Oral [Active]; symbalta [Active]; - PMHx: 07:49 tremors; tw2 - Immunization history:: Adult Immunizations. - Social history:: Smoking status: . - Ebola Screening: : Patient denies travel to an Ebola-affected area in the 21 days before illness onset. - Family history:: not pertinent. - Hospitalizations: : No recent hospitalization is reported. ROS: 07:50 Constitutional: Negative for fever, chills, and weight loss, Eyes: Negative for injury, rn pain, redness, and discharge, Neck: Negative for injury, pain, and swelling, Cardiovascular: Negative for chest pain, palpitations, and edema, Respiratory: Negative for shortness of breath, cough, wheezing, and pleuritic chest pain, Abdomen/GI: Negative for abdominal pain, nausea, vomiting, diarrhea, and constipation, Back: Negative for injury and pain, MS/Extremity: + right shoulder and scapula injury and pain Skin: Negative for injury, rash, and discoloration, Neuro: Negative for headache, weakness, numbness, tingling, and seizure. Exam: 07:50 Constitutional: This is a well developed, well nourished patient who is awake, alert, rn and in no acute distress. Head/Face: Normocephalic, atraumatic. Neck: Trachea midline,no vertebral point tenderness. Chest/axilla: Normal chest wall appearance and motion. Nontender with no deformity. No lesions are appreciated. Abdomen/GI: soft, non-tender Back: No spinal tenderness. No costovertebral tenderness. Full range of motion. + mild tenderness overlying right scapula, no shingles lesions appreciated, no crepitus Skin: Warm, dry with normal turgor. Normal color with no rashes, no lesions, and no evidence of cellulitis. MS/ Extremity: Pulses equal, no cyanosis. Neurovascular intact. Full, normal range of motion. Equal circumference. Neuro: Awake and alert, GCS 15, oriented to person, place, time, and situation. Cranial nerves II-XII grossly intact. Motor strength 5/5 in all extremities. Sensory grossly intact. Cerebellar exam normal. Normal gait. Vital Signs: 07:46 BP 127 / 76; Pulse 73; Resp 17; Temp 97.8(O); Pulse Ox 99% on R/A; Weight 73.48 kg (R); tw2 Height 5 ft. 4 in. (162.56 cm) (R); Pain 0/10; 08:51 BP 128 / 72; Pulse 61; Resp 17; Pulse Ox 97% on R/A; tw2 07:46 Body Mass Index 27.81 (73.48 kg, 162.56 cm) tw2 07:46 "but when i move into certain positions is an 8/10" tw2 MDM: 07:39 Patient medically screened. rn 08:58 Differential diagnosis: humeral head fracture, glenoid fracture, DJD, tendonitis. Data rn reviewed: vital signs, nurses notes, radiologic studies, plain films, and as a result, I will discharge patient. Counseling: I had a detailed discussion with the patient and/or guardian regarding: the historical points, exam findings, and any diagnostic results supporting the discharge/admit diagnosis, radiology results, the need for outpatient follow up, to return to the emergency department if symptoms worsen or persist or if there are any questions or concerns that arise at home. Special discussion: I discussed with the patient/guardian in detail that at this point there is no indication for admission to the hospital. It is understood, however, that if the symptoms persist or worsen the patient needs to return immediately for re-evaluation. 06/01 07:47 Order name: XRAY Shoulder RIGHT 2 view; Complete Time: 08:57 rn 06/01 07:47 Order name: XRAY Scapula Right; Complete Time: 08:57 rn 06/01 07:47 Order name: XRAY Chest Pa And Lat (2 Views); Complete Time: 08:57 rn Administered Medications: No medications were administered Disposition: 06/01/18 09:00 Discharged to Home. Impression: Contusion of right shoulder. - Condition is Stable. - Discharge Instructions: Contusion. - Medication Reconciliation Form, Thank You Letter, Antibiotic Education, Prescription Opioid Use form. - Follow up: Private Physician; When: As needed; Reason: Recheck today's complaints, Re-evaluation by your physician. - Problem is new. - Symptoms have improved. Signatures: Dispatcher [employer] EDMS Tc Ibarra MD MD rn Wise, Tara, RN RN tw2 Corrections: (The following items were deleted from the chart) 09:09 09:00 06/01/2018 09:00 Discharged to Home. Impression: Contusion of right shoulder. tw2 Condition is Stable. Forms are Medication Reconciliation Form, Thank You Letter, Antibiotic Education, Prescription Opioid Use. Follow up: Private Physician; When: As needed; Reason: Recheck today's complaints, Re-evaluation by your physician. Problem is new. Symptoms have improved. rn
--- NOTE | 2018-06-01 09:01 | ER ---
Nurse's Notes [facility] Name: Suzanne Mckenzie Age: 67 yrs Sex: Female : 1950 Arrival Date: 06/01/2018 Time: 07:35 Bed 20 Private MD: Rohit Shaikh T Diagnosis: Contusion of right shoulder Presentation: 06/01 07:43 Presenting complaint: Patient states: i fell twice on the and on the from tw2 standing i started having significant pain on my right shoulder and mid back but i am also getting over a mild case of shingles in the same area, also i am having some stiffness in my neck, pt denies blood thinners, pt denies LOC. Transition of care: patient was not received from another setting of care. Onset of symptoms was June 01, 2018. Risk Assessment: Do you want to hurt yourself or someone else? Patient reports no desire to harm self or others. Initial Sepsis Screen: Does the patient meet any 2 criteria? No. Patient's initial sepsis screen is negative. Does the patient have a suspected source of infection? No. Patient's initial sepsis screen is negative. Care prior to arrival: None. 07:43 Method Of Arrival: Ambulatory tw2 07:43 Acuity: MUNIR 4 tw2 Triage Assessment: 07:44 General: Appears in no apparent distress. well groomed, Behavior is calm, cooperative, tw2 appropriate for age. Pain: Complains of pain in right shoulder and back. Neuro: Level of Consciousness is awake, alert, obeys commands, Oriented to person, place, time, situation. Cardiovascular: Patient's skin is warm and dry. Respiratory: Airway is patent Respiratory effort is even, unlabored, Respiratory pattern is regular, symmetrical. Respiratory: Denies shortness of breath pt denies trouble breathing. GI: No signs and/or symptoms were reported involving the gastrointestinal system. : No signs and/or symptoms were reported regarding the genitourinary system. Derm: No signs and/or symptoms reported regarding the dermatologic system. Musculoskeletal: Circulation, motion, and sensation intact. Range of motion: intact in all extremities, Reports pain in right shoulder and back. Historical: - Allergies: 07:49 No Known Drug Allergies; tw2 - Home Meds: 07:49 Zocor Oral [Active]; primidone 50 mg Oral tab 1 tabs twice a day [Active]; Inderal LA tw2 Oral once daily [Active]; Lexapro Oral [Active]; Propranolol Oral [Active]; symbalta [Active]; - PMHx: 07:49 tremors; tw2 - Immunization history:: Adult Immunizations. - Social history:: Smoking status: . - Ebola Screening: : Patient denies travel to an Ebola-affected area in the 21 days before illness onset. - Family history:: not pertinent. - Hospitalizations: : No recent hospitalization is reported. Screenin:50 Abuse screen: Denies threats or abuse. Nutritional screening: No deficits noted. tw2 Tuberculosis screening: No symptoms or risk factors identified. Fall Risk Fall in past 12 months (25 points). Assessment: 07:45 Reassessment: see triage assessment. Neuro: Level of Consciousness is awake, alert, tw2 obeys commands. 08:51 Reassessment: Patient appears in no apparent distress at this time. No changes from tw2 previously documented assessment. Patient and/or family updated on plan of care and expected duration. Pain level reassessed. Patient is alert, oriented x 3, equal unlabored respirations, skin warm/dry/pink. Vital Signs: 07:46 BP 127 / 76; Pulse 73; Resp 17; Temp 97.8(O); Pulse Ox 99% on R/A; Weight 73.48 kg (R); tw2 Height 5 ft. 4 in. (162.56 cm) (R); Pain 0/10; 08:51 BP 128 / 72; Pulse 61; Resp 17; Pulse Ox 97% on R/A; tw2 07:46 Body Mass Index 27.81 (73.48 kg, 162.56 cm) tw2 07:46 "but when i move into certain positions is an 8/10" tw2 ED Course: 07:35 Patient arrived in ED. mr 07:36 Rohit Shaikh MD is Private Physician. mr 07:39 Tc Ibarra MD is Attending Physician. rn 07:42 Reny Roldan RN is Primary Nurse. tw2 07:44 Triage completed. tw2 07:44 Arm band placed on. tw2 07:44 Bed in low position. Call light in reach. Pulse ox on. NIBP on. tw2 07:51 Placed in gown. tw2 07:51 No provider procedures requiring assistance completed. tw2 08:23 XRAY Shoulder RIGHT 2 view In Process Unspecified. EDMS 08:23 XRAY Scapula Right In Process Unspecified. EDMS 08:23 XRAY Chest Pa And Lat (2 Views) In Process Unspecified. EDMS 09:08 Patient did not have IV access during this emergency room visit. tw2 Administered Medications: No medications were administered Outcome: 09:00 Discharge ordered by . rn 09:07 Discharged to home ambulatory. tw2 09:07 Condition: stable 09:07 Discharge instructions given to patient, Instructed on discharge instructions, follow up and referral plans. Demonstrated understanding of instructions, follow-up care. 09:09 Patient left the ED. tw2 Signatures: Dispatcher [employer] Virginie Fong Roman, MD MD rn Wise, Tara, RN RN tw2
[2018-06-01 09:14] VITALS: TEMP 97.8
[2018-06-01 09:16] VITALS: BP 128/72; O2SAT 97
== END 2018-06-01 09:09 | disposition home or self-care (01) ==
LOC: ER 07:30
DX: S40.011A Contusion of right shoulder, initial encounter (principal); W19.XXXA Unspecified fall, initial encounter
CPT/HCPCS: 71046; 73010; 99283

== ENCOUNTER 2018-06-15 17:09 | Emergency (ER) | payer OTHER ==
--- OUTSIDE RECORDS SUMMARY | 2018-06-15 17:12 | XMS REPORT | Clinical Summary ---
:1950 Author Organization [facility] Address [address] [place] [address] Care Team Providers Name Role Phone Asked, [...] AGE 65 AND OVER 10/25/2015 INFLUENZA VACCINE 10/02/2018 Results Not on fileafter 06/14/2017 Insurance Payer Benefit Plan / Group Subscriber ID Type Phone Address MEDICARE MEDICARE PART A AND B xxxxxxxxxx Medicare [place], [place] [employer] OF xxxxxxxxxx Commercial [employer] Advance Directives Patient has advance care planning documents on file. For more information, please contact:[facility] [place] [address]
--- OUTSIDE RECORDS SUMMARY | 2018-06-15 17:12 | XMS REPORT ---
[...] End Date Status Dosage Date Livalo [facility] 83252609010 4 MG Orally Once Active 1 tablet a day Viibryd [facility] 21626379666 20 MG Orally Mar 26, Active 1 tablet Once a day 2018 with food Primidone [facility] 09973895354 50 MG Orally Active not defined Inderal LA ND 07333827387 80 MG Orally Active 1 capsule Once a day Zetia ND 47309372052 10 MG Orally Apr 03, Active 1 tablet Once a day 2018 Protonix ND 33333883372 20 MG Orally Active 1 tablet Once a day Zocor ND 05076145392 10 MG Orally Apr 10, Active 1 tablet in Once a day 2018 the evening Prozac ND 85666941443 10 MG Orally Mar 26, Active 1 capsule Once a day 2018 in the morning Results No Known Results Summary Purpose eClinicalWorks Submission
--- OUTSIDE RECORDS SUMMARY | 2018-06-15 17:12 | XMS REPORT ---
[...] End Date Status Dosage System Date Simvastatin [facility] 19553798941 10 MG Orally September 19, Active 1 tablet in Once a day 2018 the evening Results No Known Results Summary Purpose eClinicalWorks Submission
--- OUTSIDE RECORDS SUMMARY | 2018-06-15 17:12 | XMS REPORT ---
[...] Medications Results No Known Results Summary Purpose Bolt HR Submission
--- OUTSIDE RECORDS SUMMARY | 2018-06-15 17:12 | XMS REPORT ---
[...] End Date Status Dosage Date Prozac ND 18011370009 10 MG Orally Mar 26, Active 1 capsule Once a day 2018 in the morning Zocor NDC 20081097761 10 MG Orally Apr 10, Active 1 tablet in Once a day 2018 the evening Results No Known Results Summary Purpose eClinicalWorks Submission
--- OUTSIDE RECORDS SUMMARY | 2018-06-15 17:12 | XMS REPORT ---
[...] Start Date End Date Status Dosage Zetia [facility] 50515419607 10 MG Orally Once Apr 03, Active 1 tablet a day 2017 Results No Known Results Summary Purpose eClinicalWorks Submission
--- OUTSIDE RECORDS SUMMARY | 2018-06-15 17:12 | XMS REPORT ---
[...] Instructions Start End Date Status [facility]os[facility] Date [facility] 148[facility] 10 MG Orally Mar 26, Active 1 capsule Once a day 2018 in the morning Results No Known Results Summary Purpose eClinicalWorks Submission
--- NOTE | 2018-06-15 18:30 | RAD REPORT ---
EXAM DESCRIPTION: CT - Head Brain Wo Cont - 06/15/2018 6:14 pm CLINICAL HISTORY: Headache, fall with head injury COMPARISON: CT head July 2013 TECHNIQUE: Axial 5 mm thick images of the head were obtained without IV contrast. All CT scans are performed using dose optimization technique as appropriate and may include automated exposure control or mA/KV adjustment according to patient size. FINDINGS: No intracranial hemorrhage, mass, edema or shift of mid-line structures. No acute cortical based infarction. No cortical edema or sulcal effacement. Atrophy changes are minimal. Patient has c hronic ischemic change in the cerebral white matter and small lacune or infarction changes in the bas al ganglia and anterior limb internal capsule. Chronic ischemic change does appear mildly progressive from 2013. No abnormal extra-axial fluid collections. Ventricles are in proportion to volume loss. Mastoid air cells and visualized portions of the paranasal sinuses are clear. No acute bony findings. IMPRESSION: No hemorrhage or mass lesions seen. No acute cortical based infarction. Atrophy changes are mild and stable. Chronic ischemic changes are more moderate in degree and include d brain stem. These findings are progressive from 2013. Chronic ischemic changes can mask nonhemorrhagic acute infarction. MR brain followup can be obtained if there is ongoing concern for acute ischemia.
--- NOTE | 2018-06-15 18:37 | RAD REPORT ---
EXAM DESCRIPTION: RAD - Hip Right 2 View - 06/15/2018 6:26 pm CLINICAL HISTORY: Fall, hip pain COMPARISON: None. FINDINGS: AP and frog-leg views of the right hip were obtained. There is no fracture or dislocation . No AVN or focal femoral head abnormality. No pathologic bone process or destructive finding. Hip j oint degenerative changes are present. There is sclerosis and spurring along the superior acetabular rim as well as joint space narrowing. No periarticular mass or hematoma. IMPRESSION: Right hip joint degenerative change as detailed. No fracture or acute.
--- NOTE | 2018-06-15 19:55 | ER ---
Nurse's Notes [facility] Name: Suzanne Mckenzie Age: 67 yrs Sex: Female : 1950 Arrival Date: 06/15/2018 Time: 17:09 Bed 13 Private MD: Rohit Shaikh T Diagnosis: Superficial injury of unspecified part of head;Contusion of right hip Presentation: 06/15 17:22 Presenting complaint: Patient states: "I fell today and hit my head on the wall". aa5 Denies LOC. Pt c/o head pain and right hip pain. Pt states "this is my 3rd fall in 3 weeks and I've been having trouble with vertigo". Care prior to arrival: None. Mechanism of Injury: Fall from standing position. 17:22 Method Of Arrival: Ambulatory aa5 17:22 Acuity: MUNIR 3 aa5 Historical: - Allergies: 17:25 No Known Allergies; aa5 - Home Meds: 17:25 symbalta [Active]; Inderal LA Oral once daily [Active]; Primidone Oral [Active]; aa5 - PMHx: 17:25 tremors; aa5 - Immunization history:: Flu vaccine is up to date. - Social history:: Smoking status: Patient/guardian denies using tobacco. - Ebola Screening: : No symptoms or risks identified at this time. - Family history:: not pertinent. - Hospitalizations: : No recent hospitalization is reported. Screenin:30 Abuse screen: Denies threats or abuse. Denies injuries from another. Nutritional rr5 screening: No deficits noted. Tuberculosis screening: No symptoms or risk factors identified. Fall Risk Fall in past 12 months (25 points). Total George Fall Scale indicates Low Risk Score (25-44 pts). Fall prevention measures have been instituted. Side Rails Up X 2 Placed close to Nursing Station Frequent Obs/Assesments occuring Family Present and informed to notify staff if they need to leave bedside As available Patient and Family Educated on Fall Prevention Program and strategies. Assessment: 19:20 General: Appears in no apparent distress. comfortable, Behavior is calm, cooperative, rr5 appropriate for age. Pain: Complains of pain in head Pain does not radiate. Pain currently is 5 out of 10 on a pain scale. Quality of pain is described as aching, Pain began gradually, Is intermittent. Neuro: Level of Consciousness is awake, alert, obeys commands, Oriented to person, place, time, situation, Appropriate for age Speech is normal, Facial symmetry appears normal. Cardiovascular: Capillary refill < 3 seconds Patient's skin is warm and dry. Respiratory: Airway is patent Respiratory effort is even, unlabored, Respiratory pattern is regular, symmetrical. GI: No signs and/or symptoms were reported involving the gastrointestinal system. : No signs and/or symptoms were reported regarding the genitourinary system. EENT: Reports im having vertigo. Derm: Skin is intact, Skin temperature is warm. Musculoskeletal: Capillary refill < 3 seconds, Range of motion: intact in all extremities. Vital Signs: 17:26 BP 124 / 81; Pulse 72; Resp 18 S; Temp 99.0(TE); Pulse Ox 99% on R/A; Weight 72.57 kg aa5 (R); Height 5 ft. 4 in. (162.56 cm) (R); Pain 5/10; 19:31 BP 133 / 72; Pulse 67; Resp 16; Pulse Ox 100% on R/A; mt 20:16 BP 127 / 81; Pulse 66; Resp 19; Pulse Ox 100% on R/A; Pain 4/10; ed1 17:26 Body Mass Index 27.46 (72.57 kg, 162.56 cm) aa5 ED Course: 17:09 Patient arrived in ED. as 17:10 Rohit Shaikh MD is Private Physician. as 17:22 Arm band placed on. aa5 17:24 Triage completed. aa5 18:13 CT completed. Patient tolerated procedure well. Patient moved back from CT. Patient mw3 moved to radiology. 18:14 CT Head Brain wo Cont In Process Unspecified. EDMS 18:24 Hip Right 2 View XRAY In Process Unspecified. EDMS 19:29 Tc Ibarra MD is Attending Physician. rn 19:54 Abdiel Rico MD is Referral Physician. rn 20:00 Patient has correct armband on for positive identification. Placed in gown. Bed in low rr5 position. Call light in reach. Side rails up X2. Pulse ox on. NIBP on. 20:16 No provider procedures requiring assistance completed. Patient did not have IV access ed1 during this emergency room visit. Administered Medications: No medications were administered Outcome: 19:55 Discharge ordered by . rn 20:16 Discharged to home ambulatory. ed1 20:16 Condition: good 20:16 Discharge instructions given to patient, Instructed on discharge instructions, follow up and referral plans. Demonstrated understanding of instructions, follow-up care. 20:17 Patient left the ED. ed1 Signatures: Dispatcher [employer] Dian Bowman Roman, MD MD rn Calderon, Audri RN RN aa5 Sofia Damon RN RN ed1 Montserrat Martinez mt, Michelle 3 Luis Orellana, RN RN rr5
--- NOTE | 2018-06-15 19:56 | EDPHYS ---
Physician Documentation [facility] Name: Suzanne Mckenzie Age: 67 yrs Sex: Female : 1950 Arrival Date: 06/15/2018 Time: 17:09 Bed 13 Private MD: Rohit Shaikh T ED Physician Tc Ibarra HPI: 06/15 19:51 This 67 yrs old Female presents to ER via Ambulatory with complaints of Fall rn Injury, Head Injury-Adult. 19:51 Details of fall: The patient fell from an upright position. Onset: The symptoms/episode rn began/occurred today. Associated injuries: The patient sustained injury to the head. Severity of symptoms: At their worst the symptoms were mild, in the emergency department the symptoms are unchanged. The patient has experienced similar episodes in the past. REports has been falling recently, feels like balance issues, 3 falls in 3 weeks, hit head today, no blood thinners, no LOC, no vomiting, no focal neurological problems. No infectious symptoms. No syncope. . Historical: - Allergies: 17:25 No Known Allergies; aa5 - Home Meds: 17:25 symbalta [Active]; Inderal LA Oral once daily [Active]; Primidone Oral [Active]; aa5 - PMHx: 17:25 tremors; aa5 - Immunization history:: Flu vaccine is up to date. - Social history:: Smoking status: Patient/guardian denies using tobacco. - Ebola Screening: : No symptoms or risks identified at this time. - Family history:: not pertinent. - Hospitalizations: : No recent hospitalization is reported. ROS: 19:51 Constitutional: Negative for fever, chills, and weight loss, Eyes: Negative for injury, rn pain, redness, and discharge, Neck: Negative for injury, pain, and swelling, Cardiovascular: Negative for chest pain, palpitations, and edema, Respiratory: Negative for shortness of breath, cough, wheezing, and pleuritic chest pain, Abdomen/GI: Negative for abdominal pain, nausea, vomiting, diarrhea, and constipation, MS/Extremity: + right hip pain Skin: Negative for injury, rash, and discoloration, Neuro: Negative for headache, weakness, numbness, tingling, and seizure. Exam: 19:51 Constitutional: This is a well developed, well nourished patient who is awake, alert, rn and in no acute distress. Sitting upright in bed Head/Face: Normocephalic, atraumatic. Eyes: Pupils equal round and reactive to light, extra-ocular motions intact. Lids and lashes normal. Conjunctiva and sclera are non-icteric and not injected. Cornea within normal limits. Periorbital areas with no swelling, redness, or edema. Respiratory: No increased work of breathing, no retractions or nasal flaring. Abdomen/GI: soft, non-tender Skin: Warm, dry MS/ Extremity: Pulses equal, no cyanosis. Neurovascular intact. Full, normal range of motion. Equal circumference. Neuro: Awake and alert, GCS 15, oriented to person, place, time, and situation. Cranial nerves II-XII grossly intact. Motor strength 5/5 in all extremities. Sensory grossly intact. Cerebellar exam normal. Normal gait. Vital Signs: 17:26 BP 124 / 81; Pulse 72; Resp 18 S; Temp 99.0(TE); Pulse Ox 99% on R/A; Weight 72.57 kg aa5 (R); Height 5 ft. 4 in. (162.56 cm) (R); Pain 5/10; 19:31 BP 133 / 72; Pulse 67; Resp 16; Pulse Ox 100% on R/A; mt 20:16 BP 127 / 81; Pulse 66; Resp 19; Pulse Ox 100% on R/A; Pain 4/10; ed1 17:26 Body Mass Index 27.46 (72.57 kg, 162.56 cm) aa5 MDM: 19:29 Patient medically screened. rn 19:51 Differential diagnosis: closed head injury, contusion, fracture. Data reviewed: vital rn signs, nurses notes, radiologic studies, CT scan, plain films, and as a result, I will discharge patient. Counseling: I had a detailed discussion with the patient and/or guardian regarding: the historical points, exam findings, and any diagnostic results supporting the discharge/admit diagnosis, radiology results, the need for outpatient follow up, to return to the emergency department if symptoms worsen or persist or if there are any questions or concerns that arise at home. Special discussion: Based on the patient's history, exam and DX evaluation, there is no indication for emergent intervention or inpatient TX. It is understood by the patient/guardian that if the SXs persist or worsen they need to return immediately for re-evaluation. I discussed with the patient/guardian in detail that at this point there is no indication for admission to the hospital. It is understood, however, that if the symptoms persist or worsen the patient needs to return immediately for re-evaluation. Based on the history and exam findings, there is no indication for further emergent testing or inpatient evaluation. I discussed with the patient/guardian the need to see the neurologist for further evaluation of the symptoms. 06/15 17:27 Order name: CT Head Brain wo Cont; Complete Time: : aa5 06/15 17:27 Order name: Hip Right 2 View XRAY; Complete Time: aa5 Administered Medications: No medications were administered Disposition: 06/15/18 19:55 Discharged to Home. Impression: Superficial injury of unspecified part of head, Contusion of right hip. - Condition is Stable. - Discharge Instructions: Contusion, Head Injury, Adult, Fall Prevention in the Home, Paresthesia. - Medication Reconciliation Form, Thank You Letter, Antibiotic Education, Prescription Opioid Use form. - Follow up: Abdiel Rico MD; When: As needed; Reason: Recheck today's complaints, Re-evaluation by your physician. - Problem is new. - Symptoms have improved. Signatures: Dispatcher [employer] EDMS Tc Ibarra MD MD rn Calderon, Audri, RN RN aa5 Sofia Damon RN RN ed1 Corrections: (The following items were deleted from the chart) 20:17 19:55 06/15/2018 19:55 Discharged to Home. Impression: Superficial injury of ed1 unspecified part of head; Contusion of right hip. Condition is Stable. Forms are Medication Reconciliation Form, Thank You Letter, Antibiotic Education, Prescription Opioid Use. Follow up: Abdiel Rico; When: As needed; Reason: Recheck today's complaints, Re-evaluation by your physician. Problem is new. Symptoms have improved. rn
[2018-06-15 20:52] VITALS: TEMP 99
[2018-06-15 20:53] VITALS: O2SAT 100
[2018-06-15 20:55] VITALS: BP 127/81
== END 2018-06-15 20:17 | disposition home or self-care (01) ==
LOC: ER 17:09
DX: S00.90XA Unspecified superficial injury of unspecified part of head, initial encounter (principal); S70.01XA Contusion of right hip, initial encounter; W19.XXXA Unspecified fall, initial encounter; Y93.9 Activity, unspecified; Y92.9 Unspecified place or not applicable; R25.1 Tremor, unspecified
CPT/HCPCS: 70450; 99284

== ENCOUNTER 2018-09-14 17:53 | Emergency (ER) | payer OTHER ==
--- OUTSIDE RECORDS SUMMARY | 2018-09-14 17:55 | XMS REPORT ---
[...] Medications Results No Known Results Summary Purpose [employer] Submission
--- OUTSIDE RECORDS SUMMARY | 2018-09-14 17:55 | XMS REPORT ---
[...] Instructions Start End Date Status [id number] MG Orally Mar 26, Active 1 capsule Once a day 2018 in the morning Results No Known Results Summary Purpose [employer] Submission
--- OUTSIDE RECORDS SUMMARY | 2018-09-14 17:55 | XMS REPORT | Clinical Summary ---
:1950 Author Organization [facility] Address [address] [place] [address] Care Team Providers Name Role Phone Asked, [...] Last Done Comments BREAST CANCER SCREENING 2000 COLONOSCOPY SCREENING 2000 SHINGLES VACCINES (#1) 2000 65+ PNEUMOCOCCAL VACCINE (1 of 2 - PCV13) 10/25/2015 INFLUENZA VACCINE 10/02/2018 Results Not on fileafter 09/13/2017 Insurance Payer Benefit Plan / Subscriber ID Effective Dates Phone Address Type Group MEDICARE MEDICARE PART A xxxxxxxxxx 2015-[place], [place] Medicare AND B t ADILENE SeeMe xxxxxxxxxx [facility] [employer] [address] (Home) [place] [address] Advance Directives Patient has advance care planning documents on file. For more information, please contact:Parish [address] [place] [address]
--- OUTSIDE RECORDS SUMMARY | 2018-09-14 17:55 | XMS REPORT ---
[...] Start Date End Date Status Dosage Zetia [facility] 64246330837 10 MG Orally Once Apr 03, Active 1 tablet a day 2017 Results No Known Results Summary Purpose [employer] Submission
--- OUTSIDE RECORDS SUMMARY | 2018-09-14 17:55 | XMS REPORT ---
[...] Start End Date Status Dosage Date Livalo [facility] 78355541737 4 MG Orally Once Active 1 tablet a day Viibryd FORMER[facility] NAMED [facility] 96959189159 20 MG Orally Mar 26, Active 1 tablet Once a day 2018 with food Primidone [facility] NAMED [facility] 75585859606 50 MG Orally Active not defined Inderal LA ND 33384282819 80 MG Orally Active 1 capsule Once a day Zetia ND 24261744946 10 MG Orally Apr 03, Active 1 tablet Once a day 2018 Protonix ND 86075650875 20 MG Orally Active 1 tablet Once a day Zocor ND 48419516329 10 MG Orally Apr 10, Active 1 tablet in Once a day 2018 the evening Prozac ND 49687587335 10 MG Orally Mar 26, Active 1 capsule Once a day 2018 in the morning Results No Known Results Summary Purpose [employer] Submission
--- OUTSIDE RECORDS SUMMARY | 2018-09-14 17:55 | XMS REPORT ---
[...] End Date Status Dosage System Date Simvastatin [facility] 21949394796 10 MG Orally September 19, Active 1 tablet in Once a day 2018 the evening Results No Known Results Summary Purpose [employer] Submission
--- OUTSIDE RECORDS SUMMARY | 2018-09-14 17:55 | XMS REPORT ---
[...] End Date Status Dosage Date Prozac ND 42371228698 10 MG Orally Mar 26, Active 1 capsule Once a day 2018 in the morning Zocor NDC 68061106932 10 MG Orally Apr 10, Active 1 tablet in Once a day 2018 the evening Results No Known Results Summary Purpose [employer] Submission
[2018-09-14] MEDS ORDERED: FENTANYL CITR 100 MCG/2 ML ONE (18:20)
[2018-09-14] MEDS ORDERED: ONDANSETRON 4 MG/2 ML VIAL ONE (18:29)
[2018-09-14] MEDS ORDERED: NA CHLORIDE 0.9% 1,000 ML ONE (18:29)
[2018-09-14] MEDS ORDERED: LIDOCAINE 1% MPF 5 ML VIAL ONE (18:29)
[2018-09-14] MEDS ORDERED: LIDOCAINE 1% 20 ML MDV ONE (18:31)
[2018-09-14] MEDS ORDERED: BUPIVACAINE 0.5% PF 10 ML VIAL ONE (18:31)
--- NOTE | 2018-09-14 19:07 | RAD REPORT ---
EXAM DESCRIPTION: RAD - Elbow Left 3 View - 09/14/2018 6:47 pm CLINICAL HISTORY: Left elbow pain status post trauma FINDINGS: No fracture or dislocation is seen.
--- NOTE | 2018-09-14 19:08 | RAD REPORT ---
EXAM DESCRIPTION: RAD - Wrist Left 3 View - 09/14/2018 6:47 pm CLINICAL HISTORY: Left wrist pain status post injury FINDINGS: Comminuted impacted fracture involves the distal radius with angulation present at the fra cture site. Ulnar styloid fracture. No dislocation seen
[2018-09-14] MEDS ORDERED: PROPOFOL 0 MG/0 ML VIAL IV ONE (19:33)
[2018-09-14] MEDS ORDERED: PROPOFOL 200 MG/20 ML VIAL IV ONE (19:41)
--- NOTE | 2018-09-14 20:28 | RAD REPORT ---
EXAM DESCRIPTION: RAD - Wrist Left 2 View - 09/14/2018 8:20 pm CLINICAL HISTORY: Radial fracture FINDINGS: Splint immobilizes fractures of the distal radius and ulna in better alignment
--- NOTE | 2018-09-14 20:52 | ER ---
Nurse's Notes [facility] [place] Name: Suzanne Mckenzie Age: 67 yrs Sex: Female : 1950 Arrival Date: 09/14/2018 Time: 17:54 Bed 4 Private MD: Diagnosis: Left distal radius and ulna fracture Presentation: 09/14 18:00 Presenting complaint: Patient states: tripped over a walker, fell forward, obvious iw deformity to left wrist, swelling and bruising noted. Transition of care: patient was not received from another setting of care. Onset of symptoms was September 14, 2018. Risk Assessment: Do you want to hurt yourself or someone else? Patient reports no desire to harm self or others. Initial Sepsis Screen: Does the patient meet any 2 criteria? No. Patient's initial sepsis screen is negative. Does the patient have a suspected source of infection? No. Patient's initial sepsis screen is negative. Care prior to arrival: Splint applied. 18:00 Method Of Arrival: Wheelchair iw 18:00 Acuity: MUNIR 3 iw Triage Assessment: 19:40 Injury Description: Deformity sustained to left wrist is displaced. jd3 Historical: - Allergies: 18:09 Codeine; iw - Home Meds: 18:09 Inderal LA Oral 2 times per day [Active]; primidone oral [Active]; Cymbalta oral oral iw [Active]; Simvastatin Oral once daily [Active]; folate daily [Active]; - PMHx: 18:09 tremors; iw - Immunization history:: Adult Immunizations unknown. - Ebola Screening: : Patient negative for fever greater than or equal to 101.5 degrees Fahrenheit, and additional compatible Ebola Virus Disease symptoms Patient denies exposure to infectious person Patient denies travel to an Ebola-affected area in the 21 days before illness onset No symptoms or risks identified at this time. - Social history:: Smoking status: unknown. Screenin:00 Abuse screen: Denies threats or abuse. Denies injuries from another. Nutritional sv screening: No deficits noted. Tuberculosis screening: No symptoms or risk factors identified. Fall Risk No fall in past 12 months (0 pts). No secondary diagnosis (0 pts). IV access (20 points). Ambulatory Aid- None/Bed Rest/Nurse Assist (0 pts). Gait- Normal/Bed Rest/Wheelchair (0 pts) Mental Status- Oriented to own ability (0 pts). Total George Fall Scale indicates No Risk (0-24 pts). Assessment: 18:00 General: Appears distressed, uncomfortable, well groomed, well developed, Behavior is sv cooperative, appropriate for age, anxious. Pain: Complains of pain in left wrist and left hand Pain currently is 10 out of 10 on a pain scale. Quality of pain is described as tender, throbbing, Is continuous, Alleviated by rest, Aggravated by increased activity, Noted to be grimacing, guarding, resistant to movement. Neuro: Level of Consciousness is awake, alert, obeys commands, Oriented to person, place, time, situation, Gait is steady. Respiratory: Respiratory effort is even, unlabored, Respiratory pattern is regular, symmetrical. Derm: Skin is intact, Skin is pink, warm \T\ dry. Musculoskeletal: Circulation, motion, and sensation intact. Range of motion: limited in left wrist Bony deformity noted of left wrist and left hand Swelling present in left wrist and left hand. 19:40 General: Appears uncomfortable, Behavior is calm, cooperative, appropriate for age. jd3 Pain: Complains of pain in left wrist Quality of pain is described as tender, throbbing, Is continuous. Neuro: Level of Consciousness is awake, alert, obeys commands, Oriented to person, place, time, situation. Cardiovascular: Capillary refill < 3 seconds Patient's skin is warm and dry. Respiratory: Airway is patent Respiratory effort is even, unlabored, Respiratory pattern is regular, symmetrical. GI: No signs and/or symptoms were reported involving the gastrointestinal system. : No signs and/or symptoms were reported regarding the genitourinary system. EENT: No signs and/or symptoms were reported regarding the EENT system. Derm: Skin is intact, Skin is dry, Skin is normal, Skin temperature is warm. Musculoskeletal: Circulation, motion, and sensation intact. Range of motion: limited in left wrist Bony deformity noted of left wrist Swelling present in left wrist. 20:01 Reassessment: Patient appears in no apparent distress at this time. No changes from jd3 previously documented assessment. Patient and/or family updated on plan of care and expected duration. Pain level reassessed. Patient is alert, oriented x 3, equal unlabored respirations, skin warm/dry/pink. conscious sedation performed. see conscious sedation charting. 20:23 Reassessment: Patient appears in no apparent distress at this time. No changes from jd3 previously documented assessment. Patient and/or family updated on plan of care and expected duration. Pain level reassessed. Patient is alert, oriented x 3, equal unlabored respirations, skin warm/dry/pink. pt fully awake, even and unlabored respirations, pt A\T\O X 4. 21:41 Reassessment: Patient appears in no apparent distress at this time. Patient and/or jd3 family updated on plan of care and expected duration. Pain level reassessed. Patient is alert, oriented x 3, equal unlabored respirations, skin warm/dry/pink. reported understanding of discharge instructions. assisted to front of ER with wheelchair. Patient states feeling better. Vital Signs: 18:08 BP 148 / 95; Pulse 76; Resp 24; Temp 98; Pulse Ox 100% ; Weight 72 kg; Height 5 ft. 4 sv in. (162.56 cm); Pain 10/10; 18:30 BP 151 / 99; Pulse 72; Resp 18; Pulse Ox 100% ; sv 19:40 BP 148 / 99; Pulse 77; Resp 19 S; Temp 98.8(TE); Pulse Ox 99% on R/A; jd3 20:41 BP 137 / 85; Pulse 75; Resp 15 S; Pulse Ox 100% on 2 lpm NC; jd3 21:42 BP 147 / 87; Pulse 70; Resp 16 S; Pulse Ox 100% on R/A; jd3 18:08 Body Mass Index 27.25 (72.00 kg, 162.56 cm) sv ED Course: 17:54 Patient arrived in ED. as 17:56 Luba Bridges, MARICEL is Primary Nurse. sv 17:58 Mk Palencia PA is PHCP. cp 17:58 Tc Ibarra MD is Attending Physician. cp 18:00 Patient has correct armband on for positive identification. Bed in low position. Call sv light in reach. Side rails up X2. Adult w/ patient. Pulse ox on. NIBP on. Door closed. Head of bed elevated. 18:05 Inserted saline lock: 20 gauge in right antecubital area, using aseptic technique. sv ,using aseptic technique. done by Kalpana CONNELLY. 18:08 Triage completed. iw 18:46 Jesus Mcconnell MD is Attending Physician. cp 18:47 XRAY Wrist LEFT 3 view In Process Unspecified. EDMS 18:47 XRAY Elbow LEFT 3 view In Process Unspecified. EDMS 19:07 Report given to Murtaza CONNELLY and Ryanne CONNELLY. sv 19:15 Primary Nurse role handed off by Luba Bridges RN sv 20:01 Assist provider with fracture care of left wrist Fracture is closed. Obvious deformity jd3 is noted. Circulation, motor and sensation is intact. Set up for procedure. Performed by Jesus Mcconnell MD Reduced with physical manipulation. Immobilized with OCL splint, Post immobilization, circulation, motor and sensation remain intact. Patient tolerated well. 20:20 Wrist Left (2 View) XRAY In Process Unspecified. EDMS 20:28 Murtaza Lemos RN is Primary Nurse. jd3 20:51 Malcolm Mcdaniel MD is Referral Physician. cp 21:39 Arm band placed on. jd3 21:40 IV discontinued, intact, bleeding controlled, No redness/swelling at site. Pressure jd3 dressing applied. Administered Medications: 18:08 Drug: fentaNYL (PF) 25 mcg Route: IVP; Site: right antecubital; sv 18:56 Follow up: Response: No adverse reaction; No change in condition sv 18:10 Drug: Zofran 4 mg Route: IVP; Site: right antecubital; sv 18:56 Follow up: Response: No adverse reaction sv 18:10 Drug: NS 0.9% 1000 ml Route: IV; Rate: 125 ml/hr; Site: right antecubital; sv 21:37 Follow up: Response: No adverse reaction; IV Status: Order to discontinue infusion jd3 18:55 Drug: fentaNYL (PF) 25 mcg Route: IVP; Site: right antecubital; sv 19:55 Follow up: Response: No adverse reaction jd3 20:01 Drug: Propofol 100 mg {Note: given by Dr. Mcconnell..} Route: IVP; Site: right antecubital;jd3 21:00 Follow up: Response: No adverse reaction jd3 21:12 Drug: Hydrocodone-Acetaminophen (7.5 mg-325 mg) 1 tabs Route: PO; jd3 21:38 Follow up: Response: No adverse reaction jd3 Outcome: 20:52 Discharge ordered by MD. cp 21:39 Discharged to home via wheelchair, with family. jd3 21:39 Condition: stable 21:39 Discharge instructions given to patient, family, Instructed on discharge instructions, follow up and referral plans. medication usage, Demonstrated understanding of instructions, follow-up care, medications, Prescriptions given X 2. 21:43 Patient left the ED. jd3 Signatures: Dispatcher [employer] EDLuba York RN RN sv Martinez, Amelia as Williams, Irene, RN RN iw Page, Corey, PA PA cp Davies, Jonathon RN RN jd3 Corrections: (The following items were deleted from the chart) 18:09 18:08 BP 148 / 95; Pulse 76bpm; Resp 24bpm; Pulse Ox 100%; Temp 98F; Pain 10/10; sv sv
--- NOTE | 2018-09-14 20:53 | EDPHYS ---
Physician Documentation [facility] Name: Suzanne Mckenzie Age: 67 yrs Sex: Female : 1950 Arrival Date: 09/14/2018 Time: 17:54 Bed 4 Private MD: ED Physician Jesus Mcconnell HPI: 09/14 18:10 This 67 yrs old Female presents to ER via Wheelchair with complaints of Arm cp Injury. 18:10 The patient or guardian complains of decreased range of motion, deformity, injury, cp pain, that is acute. The complaints affect the left wrist. Context: resulted from a fall, while walking. Onset: The symptoms/episode began/occurred just prior to arrival. Treatment prior to arrival includes: no previous treatment. Associated signs and symptoms: Pertinent positives: decreased range of motion, deformity, pain, Pertinent negatives: numbness, tingling. Historical: - Allergies: 18:09 Codeine; iw - Home Meds: 18:09 Inderal LA Oral 2 times per day [Active]; primidone oral [Active]; Cymbalta oral oral iw [Active]; Simvastatin Oral once daily [Active]; folate daily [Active]; - PMHx: 18:09 tremors; iw - Immunization history:: Adult Immunizations unknown. - Ebola Screening: : Patient negative for fever greater than or equal to 101.5 degrees Fahrenheit, and additional compatible Ebola Virus Disease symptoms Patient denies exposure to infectious person Patient denies travel to an Ebola-affected area in the 21 days before illness onset No symptoms or risks identified at this time. - Social history:: Smoking status: unknown. ROS: 18:20 Constitutional: Negative for body aches, chills, fever, poor PO intake. cp 18:20 Eyes: Negative for injury, pain, redness, and discharge. cp 18:20 ENT: Negative for drainage from ear(s), ear pain, sore throat, difficulty swallowing, difficulty handling secretions. 18:20 Neck: Negative for pain with movement, pain at rest, stiffness, tenderness, bony tenderness. 18:20 Cardiovascular: Negative for chest pain. 18:20 Respiratory: Negative for cough. 18:20 Abdomen/GI: Negative for abdominal pain, nausea, vomiting, and diarrhea. 18:20 Back: Negative for pain at rest, pain with movement, radiated pain. 18:20 MS/extremity: Positive for injury or acute deformity, decreased range of motion, pain, tenderness, of the left wrist, Negative for paresthesias. 18:20 Neuro: Negative for altered mental status, headache, loss of consciousness, numbness, syncope. 18:20 All other systems are negative. Exam: 18:25 Constitutional: The patient appears in no acute distress, alert, awake, cp non-diaphoretic, well developed, well nourished. 18:25 Head/Face: Normocephalic, atraumatic. cp 18:25 Eyes: Periorbital structures: appear normal, Conjunctiva: normal, no exudate, no injection, Lids and lashes: appear normal, bilaterally. 18:25 ENT: External ear(s): are unremarkable, Nose: is normal, Mouth: is normal, Posterior pharynx: Airway: no evidence of obstruction, patent. 18:25 Neck: C-spine: vertebral tenderness, is not appreciated, crepitus, is not appreciated, ROM/movement: is normal, is supple, without pain, no range of motions limitations, no nuchal rigidity. 18:25 Chest/axilla: Inspection: normal. 18:25 Cardiovascular: Rate: normal, Rhythm: regular. 18:25 Respiratory: the patient does not display signs of respiratory distress, Respirations: normal, no use of accessory muscles, no retractions, no splinting, no tachypnea, Breath sounds: are clear throughout, no decreased breath sounds, no stridor, no wheezing. 18:25 Abdomen/GI: Inspection: abdomen appears normal, Palpation: abdomen is soft and non-tender, in all quadrants. 18:25 Back: pain, is absent, ROM is normal. 18:25 Musculoskeletal/extremity: Perfusion: the extremity is normally perfused throughout, the left arm Sensation intact. Joints: All joints are normal except the left wrist displays deformity, limited range of motion, pain at rest, tenderness. 18:25 Neuro: Orientation: to person, place \T\ time. Mentation: is normal, Motor: moves all fours. Vital Signs: 18:08 BP 148 / 95; Pulse 76; Resp 24; Temp 98; Pulse Ox 100% ; Weight 72 kg; Height 5 ft. 4 sv in. (162.56 cm); Pain 10/10; 18:30 BP 151 / 99; Pulse 72; Resp 18; Pulse Ox 100% ; sv 19:40 BP 148 / 99; Pulse 77; Resp 19 S; Temp 98.8(TE); Pulse Ox 99% on R/A; jd3 20:41 BP 137 / 85; Pulse 75; Resp 15 S; Pulse Ox 100% on 2 lpm NC; jd3 21:42 BP 147 / 87; Pulse 70; Resp 16 S; Pulse Ox 100% on R/A; jd3 18:08 Body Mass Index 27.25 (72.00 kg, 162.56 cm) sv Procedures: 20:45 Reduction: of the left wrist, using manipulation, Immobilized with orthoglass sugar cp tong. Patient tolerated well. Post reduction film - reveals improved alignment. 20:45 Moderate sedation: Pre-procedure assessment: the patient has been NPO 4 hour(s) prior cp to arrival, Airway assessment: able to hyperextend neck, able to maintain airway, can open mouth without difficulty, Monitoring during procedure: swage toolsetter, continuous pulse oximetry, nurse at bedside at all times, Medications employed: Fentanyl, 50 mcg(s), Propofol, Post-procedure assessment: the patient is moderately sedated, Respiratory status: requires supplemental oxygen to maintain acceptable oxygen saturation, a reversal agent was not used. MDM: 18:11 Patient medically screened. cp 20:51 Data reviewed: vital signs, nurses notes, radiologic studies, plain films, I have cp discussed the patient's presentation/case with the attending Emergency Department Physician; and as a result, I will discharge patient. 20:51 Test interpretation: by ED physician or midlevel provider: plain radiologic studies. cp Counseling: I had a detailed discussion with the patient and/or guardian regarding: the historical points, exam findings, and any diagnostic results supporting the discharge/admit diagnosis, radiology results, the need for outpatient follow up, for definitive care, a orthopedic surgeon, to return to the emergency department if symptoms worsen or persist or if there are any questions or concerns that arise at home. Response to treatment: the patient's symptoms have markedly improved after treatment, and as a result, I will discharge patient. 09/14 18:04 Order name: XRAY Wrist LEFT 3 view; Complete Time: 20:48 cp 09/14 18:04 Order name: XRAY Elbow LEFT 3 view; Complete Time: 20:48 cp 09/14 20:09 Order name: Wrist Left (2 View) XRAY; Complete Time: 20:48 cp 09/14 20:49 Interpretation: Report reviewed. cp 09/14 18:04 Order name: IV; Complete Time: 18:08 cp Administered Medications: 18:08 Drug: fentaNYL (PF) 25 mcg Route: IVP; Site: right antecubital; sv 18:56 Follow up: Response: No adverse reaction; No change in condition sv 18:10 Drug: Zofran 4 mg Route: IVP; Site: right antecubital; sv 18:56 Follow up: Response: No adverse reaction sv 18:10 Drug: NS 0.9% 1000 ml Route: IV; Rate: 125 ml/hr; Site: right antecubital; sv 21:37 Follow up: Response: No adverse reaction; IV Status: Order to discontinue infusion jd3 18:55 Drug: fentaNYL (PF) 25 mcg Route: IVP; Site: right antecubital; sv 19:55 Follow up: Response: No adverse reaction jd3 20:01 Drug: Propofol 100 mg {Note: given by Dr. Mcconnell..} Route: IVP; Site: right antecubital;jd3 21:00 Follow up: Response: No adverse reaction jd3 21:12 Drug: Hydrocodone-Acetaminophen (7.5 mg-325 mg) 1 tabs Route: PO; jd3 21:38 Follow up: Response: No adverse reaction jd3 Disposition: 09/15 19:00 Co-signature as Attending Physician, Jesus Mcconnell MD Available for consultation at ps1 all times . Disposition: 09/14/18 20:52 Discharged to Home. Impression: Left distal radius and ulna fracture. - Condition is Stable. - Discharge Instructions: Wrist Fracture Treated With Immobilization. - Prescriptions for Ibuprofen 800 mg Oral Tablet - take 1 tablet by ORAL route every 8 hours As needed take with food; 30 tablet. Tylenol- Codeine #3 300-30 mg Oral Tablet - take 2 tablets by ORAL route every 6 hours As needed; 20 tablet. - Medication Reconciliation Form, Thank You Letter, Antibiotic Education, Prescription Opioid Use form. - Follow up: Malcolm Mcdaniel MD; When: 1 - 2 days; Reason: Recheck today's complaints. - Problem is new. - Symptoms have improved. Signatures: Dispatcher [employer] Luba Villasenor RN RN sv Kalpana Barrett RN RN iw Mk Palencia PA PA cp Murtaza Lemos RN RN jd3 Jesus Mcconnell MD MD ps1 Corrections: (The following items were deleted from the chart) 09/14 21:43 20:52 09/14/2018 20:52 Discharged to Home. Impression: Left distal radius and ulna jd3 fracture. Condition is Stable. Forms are Medication Reconciliation Form, Thank You Letter, Antibiotic Education, Prescription Opioid Use. Follow up: Malcolm Mcdaniel; When: 1 - 2 days; Reason: Recheck today's complaints. Problem is new. Symptoms have improved. cp
[2018-09-14] MEDS ORDERED: HYDROCODONE/APAP 7.5/325 MG TAB ONE (21:24)
[2018-09-14 22:40] VITALS: TEMP 98.8
[2018-09-14 22:42] VITALS: O2SAT 100
[2018-09-14 22:43] VITALS: BP 147/87
== END 2018-09-14 21:43 | disposition home or self-care (01) ==
LOC: ER 17:53
PROC: 0PSJXZZ Reposition Left Radius, External Approach (ICD-10-PCS; principal; 2018-09-14)
DX: S52.502A Unspecified fracture of the lower end of left radius, initial encounter for closed fracture (principal); S52.602A Unspecified fracture of lower end of left ulna, initial encounter for closed fracture; W18.30XA Fall on same level, unspecified, initial encounter; Y93.89 Activity, other specified; Y92.9 Unspecified place or not applicable; Z88.6 Allergy status to analgesic agent
CPT/HCPCS: 96361; 73080; 73110; 73100; 96375; 96374; 99285; 25605; J2704; J3010; J7030; J2405

== ENCOUNTER 2021-05-15 11:18 | Day surgery (SDC) | payer MEDICARE ==
[2021-05-15] MEDS ORDERED: PHENYLEPHRINE 2.5% OPTH 2 ML ONE (11:38)
[2021-05-15] MEDS ORDERED: CYCLOPENTOLATE 1% OPTH 2 ML ONE (11:38)
[2021-05-15] MEDS ORDERED: Ringers Lactate 1,000 ML IV ONE (11:38)
[2021-05-15] MEDS ORDERED: LIDOCAINE HCL/PF 3.5% OPTH GEL ONE (11:38)
[2021-05-15] MEDS ORDERED: EPINEPHRINE/PF 1 MG/ML AMP ONE (11:49)
[2021-05-15] MEDS ORDERED: LIDOCAINE 1% MPF 2 ML AMPULE ONE (11:50)
[2021-05-15] MEDS ORDERED: CYCLOPENTOLATE 1% OPTH 2 ML OPTH ONE ×3 (11:50→12:30)
[2021-05-15] MEDS ORDERED: PHENYLEPHRINE 2.5% OPTH 2 ML OPTH ONE ×3 (11:50→12:30)
[2021-05-15] MEDS ORDERED: POVIDONE-IODINE 5% EYE DROPS ONE (11:51)
[2021-05-15] MEDS ORDERED: FENTANYL CITR 100 MCG/2 ML ONE (12:00)
[2021-05-15] MEDS ORDERED: propofoL 200 MG/20 ML VIAL IV ONE (12:01)
[2021-05-15] MEDS ORDERED: LIDOCAINE 2% MPF 5 ML VIAL ONE (12:01)
[2021-05-15] MEDS ORDERED: ONDANSETRON 4 MG/2 ML VIAL ONE (12:01)
[2021-05-15] MEDS ORDERED: MIDAZOLAM HCL 2 MG/2 ML INJ ONE (12:01)
[2021-05-15] MEDS ORDERED: LIDOCAINE HCL/PF 3.5% OPTH GEL OPTH ONE (12:30)
[2021-05-15] MEDS: BALANCED SALT IRRIG PLAIN 500 ML IRR ONE ×2 (12:41→13:12)
[2021-05-15] MEDS: TETRACAINE HCL 0.5% 4ML OPTH ONE ×2 (12:41→13:08)
[2021-05-15] MEDS: DUOVISC 1 KIT OPTH ONE ×2 (12:42→13:12)
[2021-05-15] MEDS: MOXIFLOXACIN HCL 10 DROPS/ML **OR USE OPTH ONE ×2 (12:42→13:31)
[2021-05-15 14:07] VITALS: BP 127/65; TEMP 98.3; O2SAT 100
[2021-05-15] MEDS ORDERED: MOXIFLOXACIN HCL 10 DROPS/ML **OR USE OPTH ONE (14:07)
--- NOTE | 2021-05-16 00:54 | OP ---
Date of Procedure: 05/15/2021 Surgeon: Janae Puri MD Anesthesiologist: Zev Molina CRNA and José Luis Noguera MD, for cataract surgery. Preoperative Diagnosis: Combined cataract, right eye. Operation Performed: Phacoemulsification with intraocular lens implant, right eye. Anesthesia: Topical. Complications: None Description Of Procedure: In the operating room the patient was prepped and draped in the usual sterile fashion for ophthalmic surgery. A lid speculum was placed in the right eye. Two paracentesis sites were made superiorly and inferiorly in the limbal cornea. Preservative free 1% lidocaine then Viscoat wer placed in the anterior chamber. A keratome was used to enter the anterior chamber. A 360 degree capsulotomy was performed with utrata forceps. The lens was hydrodissected with BSS and rotated freely. The lens was removed with a chop technique. A 2.62 phaco CDE was used to remove the lens. Residual cortex was removed with the irrigation and aspiration. Provisc was placed in the capsular bag. A ZCB00 +22.0 lens was placed in the capsular bag without complications. Irrigation and aspiration were used to remove residual viscoelastic. The paracentesis sites were hydrated with BSS. The wound and paracentesis sites were inspected and found to be watertight. Vigamox 0.07 cc was placed intracamerally at the end of the procedure. The eye was patched with a clear shield. The patient was returned to day surgery in good condition. Discharge Instructions: Ms. Mckenzie is discharged to home in good condition. She is to follow up with Dr. Puri in the morning. JOSE L/DEMETRIO Voice ID: [id number] Report ID: [id number] FELICIANO
== END 2021-05-15 14:19 | disposition home or self-care (01) ==
LOC: OR 11:18
PROVIDERS: ATTEND Ophthalmology Retina Specialist
PROC: 08RJ3JZ Replacement of Right Lens with Synthetic Substitute, Percutaneous Approach (ICD-10-PCS; principal; 2021-05-15 13:00)
DX: H25.811 Combined forms of age-related cataract, right eye (principal); H53.8 Other visual disturbances; E78.00 Pure hypercholesterolemia, unspecified; F41.8 Other specified anxiety disorders; G47.30 Sleep apnea, unspecified; M81.0 Age-related osteoporosis without current pathological fracture; M19.90 Unspecified osteoarthritis, unspecified site; Z20.822 Contact with and (suspected) exposure to COVID-19
CPT/HCPCS: 66984; U0003; J0171; J2250; J3010; J7120; J2405; J2704

== ENCOUNTER 2021-06-26 11:10 | Day surgery (SDC) | payer MEDICARE ==
[2021-06-26] MEDS ORDERED: NA CHLORIDE 0.9% 500 ML ONE (11:58)
[2021-06-26] MEDS ORDERED: CYCLOPENTOLATE 1% OPTH 2 ML ONE (12:00)
[2021-06-26] MEDS ORDERED: PHENYLEPHRINE 2.5% OPTH 2 ML ONE (12:00)
[2021-06-26] MEDS ORDERED: MOXIFLOXACIN HCL 0.5% 3ML OPTH OPTH ONE ×2 (12:14→14:38)
[2021-06-26] MEDS: LIDOCAINE HCL/PF 3.5% OPTH GEL ONE ×2 (13:05→14:10)
[2021-06-26] MEDS ORDERED: BALANCED SALT IRRIG PLAIN 500 ML IRR ONE (13:24)
[2021-06-26] MEDS ORDERED: DUOVISC 1 KIT OPTH ONE (13:24)
[2021-06-26] MEDS ORDERED: LIDOCAINE 1% MPF 2 ML AMPULE ONE (13:24)
[2021-06-26] MEDS ORDERED: EPINEPHRINE/PF 1 MG/ML AMP ONE (13:25)
[2021-06-26] MEDS ORDERED: FENTANYL CITR 100 MCG/2 ML ONE (13:28)
[2021-06-26] MEDS ORDERED: ONDANSETRON 4 MG/2 ML VIAL ONE (13:28)
[2021-06-26] MEDS ORDERED: MIDAZOLAM HCL 2 MG/2 ML INJ ONE (13:28)
[2021-06-26] MEDS ORDERED: LIDOCAINE 1% MPF 2 ML AMPULE IJ ONE (14:35)
[2021-06-26 15:18] VITALS: BP 118/81; TEMP 97.3; O2SAT 100
--- NOTE | 2021-06-27 01:57 | OP ---
Date of Procedure: 06/26/2021 Surgeon: Janae Puri MD Anesthesiologist: Johnson Molina CRNA, Charity Alford CRNA, and Evangelist Ardon MD. Preoperative Diagnosis: Combined form of cataract, left eye. Operation Performed: Phacoemulsification with intraocular lens implant, left eye. Anesthesia: Per cataract surgery. Complications: None. Description Of Procedure: Akten 3.5% was placed in the eye prior to surgery. In the operating room the patient was prepped and draped in the usual sterile fashion for ophthalmic surgery. A lid speculum was placed in the left eye. Two paracentesis sites were made superiorly and inferiorly in the limbal cornea. Preservative free 1% lidocaine then Viscoat were placed in the anterior chamber. A keratome was used to enter the anterior chamber. A 360 degree capsulotomy was performed with utrata forceps. The lens was hydrodissected with BSS and rotated freely. The lens was removed with a stop and chop technique. 4.61 CDE was used to remove the lens. Residual cortex was removed with the irrigation and aspiration. Provisc was placed in the capsular bag. A DIB00 + 22.0 lens was placed in the capsular bag without complications. Irrigation and aspiration was used to remove residual viscoelastic. The paracentesis sites were hydrated with BSS. The wound and paracentesis sites were inspected and found to be watertight. Vigamox 0.07 cc was placed intracamerally at the end of the procedure. The eye was patched with a clear shield. The patient was returned to day surgery in good condition. Comments: Discharge Instructions: Ms. Mckenzie is discharged to home in good condition and is to follow up with Dr. Puri in the morning. JOSE L/DEMETRIO Voice ID: [id number] Report ID: [id number] FELICIANO
== END 2021-06-26 15:30 | disposition home or self-care (01) ==
LOC: OR 11:10
PROVIDERS: ATTEND Ophthalmology Retina Specialist
PROC: 08RK3JZ Replacement of Left Lens with Synthetic Substitute, Percutaneous Approach (ICD-10-PCS; principal; 2021-06-26 13:00)
DX: H25.812 Combined forms of age-related cataract, left eye (principal); Z20.822 Contact with and (suspected) exposure to COVID-19; H53.8 Other visual disturbances
CPT/HCPCS: 66984; U0003; J0171; J2250; J3010; J7040; J2405

== ENCOUNTER 2024-05-20 15:29 | Emergency (ER) | payer MEDICARE ==
--- NOTE | 2024-05-20 16:32 | RAD REPORT ---
EXAM: Chest Single View HISTORY: 73 years Female CHEST PAIN COMPARISON: 06/01/2018 FINDINGS: LUNGS/PLEURA: The lungs are clear. No pleural effusions or pneumothorax. No pulmonary edema. CARDIAC/MEDIASTINUM: The cardiac silhouette is within normal limits. UPPER ABDOMEN: No significant abnormality. BONES: No acute abnormality. LINES/TUBES/OTHER: N/A IMPRESSION: No evidence of acute cardiopulmonary disease. No significant change from prior.
[2024-05-20 16:37] LABS: Absolute Basophils 0.1 K/uL (0-0.5); Absolute Eosinophils 0.1 K/uL (0-0.5); Absolute Lymphocytes (CBC) 1.4 K/uL (0.7-4.9); Absolute Monocytes 0.3 K/uL (0.1-1.3); Absolute Neutrophil 2.8 K/uL (1.8-8.0); Basophils % 1.1 % (0-1.3); Eosinophils % 2.9 % (0-4.4); Hemoglobin 14.2 g/dL (12.0-15.0); Lymphocytes % 30.1 % (15.3-44.8); MCH 28.4 pg (27.0-35.0); MCHC 33.9 g/dL (32.0-36.0); MCV 83.9 fL (80-100); MPV 7.6 fL (7.6-11.3); Monocytes % 6.9 % (3.3-12.3); Nucleated Red Blood Cells % 0.1 % (0-0); Platelets 236 thou/uL (152-406); RBC Red Blood Cell Count 5.01 M/uL (3.86-4.86); Red Cell Distribution Width 15.4 % (12.1-15.2)
[2024-05-20 16:45] LABS: PT Prothrombin Time 11.1 SECONDS (10-13.0); Protime INR 0.97
[2024-05-20 16:56] LABS: ALT/SGPT 42 U/L (13-56); AST/SGOT 29 U/L (15-37); Albumin 3.3 g/dL (3.4-5.0); Alkaline Phosphatase 82 U/L (45-117); Anion Gap 8.1 mEq/L (5.0-15.0); BUN Blood Urea Nitrogen 17 mg/dL (7-18); Bicarbonate 26 mEq/L (21-32); Bilirubin Total 0.4 mg/dL (0.2-1.0); Globulin 3.4 g/dL (2.3-3.5); Glomerular Filtration Rate 63 ml/min (=/>90); Glucose Level 98 mg/dL (74-106); Magnesium 2.2 mg/dL (1.6-2.4); NT PRO-BNP 79 pg/mL (<125); Potassium 4.1 mEq/L (3.5-5.1); Protein, Total 6.7 g/dL (6.4-8.2); Sodium Level 139 mEq/L (136-145)
[2024-05-20 16:58] LABS: Bilirubin Direct < 0.2 mg/dL (0-0.2); Bilirubin Indirect, Calculated 0.2 mg/dL (0.2-0.8); Troponin High Sensitivity < 3.0 pg/mL (<58.9)
--- NOTE | 2024-05-20 18:55 | EDPHYS ---
Physician Documentation [facility] Name: Rosa Elena Mckenzie Age: 73 yrs Sex: Female : 1950 Arrival Date: 05/20/2024 Time: 15:29 Bed 14 Private MD: ED Physician Pradeep Chavez HPI: 05/20 16:14 This 73 yrs old Female presents to ER via Ambulatory with complaints of Chest Pressure. sp3 16:14 73-year-old female with history of anxiety, depression presents to ED with 2 episodes sp3 of chest pain. 1 episode was yesterday morning that lasted about 20 minutes of substernal chest pain radiating to the left shoulder. That resolved on its own after rest and then today at approximately 2 PM she had a second 20 to 30-minute episode of similar symptoms. She denies any associated symptoms including headache, neck pain, fever, cough, back pain, right sided chest pain, left extremity pain, jaw pain, or any other anginal equivalents. Remainder of ROS also negative including abdominal pain, vomiting, diarrhea, syncope, near syncope, rash, prolonged immobilization, travel history, known sick contacts, or any other signs or symptoms on ROS at this time.. Historical: - Allergies: 15:56 Codeine; cm10 - PMHx: 15:56 tremors; Anxiety; Depressive disorder; cm10 - PSHx: 15:56 hysterectomy (s); rectocele (s); cm10 - Immunization history:: Adult Immunizations up to date. - Infectious Disease History:: Denies. - Social history:: Smoking status: unknown. ROS: 16:15 Constitutional: Negative for fever, chills, and weight loss, Eyes: Negative for injury, sp3 pain, redness, and discharge, ENT: Negative for injury, pain, and discharge, Neck: Negative for injury, pain, and swelling, Respiratory: Negative for shortness of breath, cough, wheezing, and pleuritic chest pain, Abdomen/GI: Negative for abdominal pain, nausea, vomiting, diarrhea, and constipation, Back: Negative for injury and pain, MS/Extremity: Negative for injury and deformity, Skin: Negative for injury, rash, and discoloration, Neuro: Negative for headache, weakness, numbness, tingling, and seizure, Psych: Negative for depression, anxiety, suicide ideation, homicidal ideation, and hallucinations, Allergy/Immunology: Negative for hives, rash, and allergies, Endocrine: Negative for neck swelling, polydipsia, polyuria, polyphagia, and marked weight changes, Hematologic/Lymphatic: Negative for swollen nodes, abnormal bleeding, and unusual bruising, 16:15 All other systems are negative, Exam: 16:16 Constitutional: This is a well developed, well nourished patient who is awake, alert, sp3 and in no acute distress. Head/Face: Normocephalic, atraumatic. Eyes: Pupils equal round and reactive to light, extra-ocular motions intact. Lids and lashes normal. Conjunctiva and sclera are non-icteric and not injected. Cornea within normal limits. Periorbital areas with no swelling, redness, or edema. Neck: Trachea midline, no thyromegaly or masses palpated, and no cervical lymphadenopathy. Supple, full range of motion without nuchal rigidity, or vertebral point tenderness. No Meningismus. Chest/axilla: Normal chest wall appearance and motion. Nontender with no deformity. No lesions are appreciated. Cardiovascular: Regular rate and rhythm with a normal S1 and S2. No gallops, murmurs, or rubs. Normal PMI, no JVD. No pulse deficits. Respiratory: Lungs have equal breath sounds bilaterally, clear to auscultation and percussion. No rales, rhonchi or wheezes noted. No increased work of breathing, no retractions or nasal flaring. Abdomen/GI: Soft, non-tender, with normal bowel sounds. No distension or tympany. No guarding or rebound. No evidence of tenderness throughout. Back: No spinal tenderness. No costovertebral tenderness. Full range of motion. Skin: Warm, dry with normal turgor. Normal color with no rashes, no lesions, and no evidence of cellulitis. MS/ Extremity: Pulses equal, no cyanosis. Neurovascular intact. Full, normal range of motion. Neuro: Awake and alert, GCS 15, oriented to person, place, time, and situation. Cranial nerves II-XII grossly intact. Motor strength 5/5 in all extremities. Sensory grossly intact. Cerebellar exam normal. Normal gait. Psych: Awake, alert, with orientation to person, place and time. Behavior, mood, and affect are within normal limits. 16:16 ECG was reviewed by the Attending Physician. EKG demonstrates normal sinus rhythm at 63 bpm with normal intervals, normal QRS, normal axis, normal ST/T-segment's without evidence of acute ischemia. Vital Signs: 15:55 BP 105 / 70; Pulse 63; Resp 14; Temp 98.3; Pulse Ox 97% on R/A; Weight 72.57 kg; Height cm10 5 ft. 4 in. ; Pain 4/10; 16:47 BP 106 / 67; Pulse 65; Resp 18; Pulse Ox 98% on R/A; ph 17:45 BP 113 / 64; Pulse 65; Resp 18; Pulse Ox 96% on R/A; ph 18:43 BP 104 / 67; Pulse 76; Resp 18; Pulse Ox 99% on R/A; ph 15:55 Body Mass Index 27.46 (72.57 kg, 162.56 cm) cm10 15:55 Pain Scale: Adult cm10 MDM: 15:41 Medical Screening Exam initiated sp3 16:16 Data reviewed: vital signs, nurses notes, lab test result(s), EKG, radiologic studies. sp3 ED course: 73-year-old female with chest pain. Differential diagnosis includes musculoskeletal pain, acute coronary syndrome, pleuritic pain, GERD/GI pain, among others. EKG is normal. Chest x-ray and general labs pending. Consider 2 troponins and discharge versus 23-hour observation. Will evaluate after labs are back and see how patient does in the ED.. 16:26 ED course: Lipase down to 175. Remainder of laboratory values demonstrate no sp3 significant abnormality. We will safely discharge patient home at this time. Will refill ondansetron ODT.. 18:53 ED course: Second troponin negative. Patient has no chest pain. Vital signs are normal. sp3 We will safely discharge home with PCP and cardiology follow-up outpatient. Patient already has a elementary education teacher in [place] and states that she will call him before follow-up. She knows to return here for any further symptoms or concerns.. 05/20 15:41 Order name: Basic Metabolic Panel; Complete Time: 16:59 sp3 05/20 15:41 Order name: CBC with Diff; Complete Time: 16:59 sp3 05/20 15:41 Order name: LFT's; Complete Time: 16:59 sp3 05/20 15:41 Order name: Magnesium; Complete Time: 16:59 3 05/20 15:41 Order name: NT PRO-BNP; Complete Time: 16:59 3 05/20 15:41 Order name: PT-INR; Complete Time: 16:59 3 05/20 15:41 Order name: Troponin HS; Complete Time: 16:59 3 05/20 17:09 Order name: Troponin High Sensitivity: 2 hours after first draw; Complete Time: 18:53 3 05/20 15:41 Order name: XRAY Chest (1 view); Complete Time: 16:35 3 05/20 15:41 Order name: Cardiac monitoring; Complete Time: 15:49 3 05/20 15:41 Order name: EKG - Nurse/Tech; Complete Time: 15:49 3 05/20 15:41 Order name: IV Saline Lock; Complete Time: 16:21 3 05/20 15:41 Order name: Labs collected and sent; Complete Time: 16:21 3 05/20 15:41 Order name: O2 Per Protocol; Complete Time: 15:49 3 05/20 15:41 Order name: O2 Sat Monitoring; Complete Time: 15:49 sp3 Administered Medications: No medications were administered Disposition Summary: 05/20/24 18:54 Discharge Ordered Notes: Location: Home sp3 Condition: Stable sp3 Diagnosis - Chest pain, unspecified sp3 Followup: sp3 - With: Private Physician - When: Upon discharge from the Emergency Department - Reason: Continuance of care Discharge Instructions: - Discharge Summary Sheet sp3 - Nonspecific Chest Pain, Adult sp3 Forms: - Medication Reconciliation Form sp3 - Antibiotic Education sp3 - Prescription Opioid Use sp3 - Patient Portal Instructions sp3 - Leadership Thank You Letter sp3 Signatures: Dispatcher [employer] EDMS Pradeep Chavez MD MD sp3 Parul Taylor RN RN cm10 Corrections: (The following items were deleted from the chart) 15:42 15:41 BASIC METABOLIC PANEL+C.LAB.BRZ ordered. EDMS EDMS 15:42 15:41 CBC+H.LAB.BRZ ordered. EDMS EDMS 15:42 15:41 HEPATIC FUNCTION+C.LAB.BRZ ordered. EDMS EDMS 15:42 15:41 MAGNESIUM+C.LAB.BRZ ordered. EDMS EDMS 15:42 15:41 PROBNP+C.LAB.BRZ ordered. EDMS EDMS : 15:41 PROTIME (+INR)+COAG.LAB.BRZ ordered. EDMS EDMS : 15:41 Troponin High Sensitivity+C.LAB.BRZ ordered. EDMS EDMS : 15:42 Chest Single View+RAD.RAD.BRZ ordered. EDMS EDMS
--- NOTE | 2024-05-20 18:55 | ER ---
Nurse's Notes [facility] Name: Rosa Elena Mckenzie Age: 73 yrs Sex: Female : 1950 Arrival Date: 05/20/2024 Time: 15:29 Bed 14 Private MD: Diagnosis: Chest pain, unspecified Presentation: 05/20 15:55 Chief complaint: Patient states: Chest pressure to the center of chest onset last cm10 night. pt states that the pain goes to her back. Coronavirus screen: Client denies travel out of the [place] in the last 14 days. Ebola Screen: Patient denies travel to an Ebola-affected area in the 21 days before illness onset. Initial Sepsis Screen: Does the patient meet any 2 criteria? No. Patient's initial sepsis screen is negative. Does the patient have a suspected source of infection? No. Patient's initial sepsis screen is negative. Risk Assessment: Do you want to hurt yourself or someone else? Patient reports no desire to harm self or others. Onset of symptoms was May 20, 2024. 15:55 Method Of Arrival: Ambulatory cm10 15:55 Acuity: MUNIR 2 cm10 Triage Assessment: 15:57 General: Appears in no apparent distress. comfortable, Behavior is calm, cooperative. cm10 Neuro: No deficits noted. Level of Consciousness is awake, alert, obeys commands, Oriented to person, place, time, situation, Appropriate for age. Respiratory: No deficits noted. Airway is patent Respiratory effort is even, unlabored, Respiratory pattern is regular, symmetrical. Historical: - Allergies: 15:56 Codeine; cm10 - PMHx: 15:56 tremors; Anxiety; Depressive disorder; cm10 - PSHx: 15:56 hysterectomy (s); rectocele (s); cm10 - Immunization history:: Adult Immunizations up to date. - Infectious Disease History:: Denies. - Social history:: Smoking status: unknown. Screenin:12 [facility] ED Fall Risk Assessment (Adult) History of falling in the last 3 months, ph including since admission No falls in past 3 months (0 pts) Confusion or Disorientation No (0 pts) Intoxicated or Sedated No (0 pts) Impaired Gait No (0 pts) Mobility Assist Device Used No (0 pt) Altered Elimination No (0 pt) Score/Fall Risk Level 0 - 2 = Low Risk Oriented to surroundings, Maintained a safe environment, Hourly rounding (assess needs \T\ fall precautionary measures) done. Abuse screen: Denies threats or abuse. Denies injuries from another. Nutritional screening: No deficits noted. Tuberculosis screening: No symptoms or risk factors identified. Assessment: 16:46 General: Appears in no apparent distress. comfortable, well groomed, Behavior is calm, ph cooperative, appropriate for age. Pain: Complains of pain in chest Pain does not radiate. Pain began 1 day ago. Neuro: Level of Consciousness is awake, alert, obeys commands, Oriented to person, place, time, situation. Cardiovascular: Reports chest pain, Rhythm is sinus rhythm. Respiratory: Airway is patent Respiratory effort is even, unlabored, Respiratory pattern is regular, symmetrical. Derm: Skin is pink, warm \T\ dry. Musculoskeletal: Circulation, motion, and sensation intact. Range of motion: intact in all extremities. Vital Signs: 15:55 BP 105 / 70; Pulse 63; Resp 14; Temp 98.3; Pulse Ox 97% on R/A; Weight 72.57 kg; Height cm10 5 ft. 4 in. ; Pain 4/10; 16:47 BP 106 / 67; Pulse 65; Resp 18; Pulse Ox 98% on R/A; ph 17:45 BP 113 / 64; Pulse 65; Resp 18; Pulse Ox 96% on R/A; ph 18:43 BP 104 / 67; Pulse 76; Resp 18; Pulse Ox 99% on R/A; ph 15:55 Body Mass Index 27.46 (72.57 kg, 162.56 cm) cm10 15:55 Pain Scale: Adult cm10 Vitals: 17:45 Cardiac Rhythm Assessment Sinus rhythm. ph ED Course: 15:34 Patient arrived in ED. al6 15:36 Pradeep Chavez MD is Attending Physician. sp3 15:44 Lulu Nance, RN is Primary Nurse. ph 15:56 Triage completed. cm10 15:57 Arm band placed on right wrist. Patient placed in an exam room, on a stretcher, on cm10 director graphics, on pulse oximetry. EKG completed in triage. Results shown to MD. 15:57 EKG done, by ED staff, reviewed by Pradeep Chavez MD. cm10 16:20 Initial lab(s) drawn, by me, sent to lab. Inserted saline lock: 20 gauge in right ph antecubital area, using aseptic technique. Blood collected. Flushed with 10 mL NS. Patient maintains SpO2 saturation greater than 95% on room air. 16:26 XRAY Chest (1 view) In Process Unspecified. EDMS 16:46 Patient has correct armband on for positive identification. 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 Pulse ph ox on. NIBP on. Door closed. Noise minimized. Warm blanket given. Pillow given. 19:08 No provider procedures requiring assistance completed. IV discontinued, intact, ph bleeding controlled, No redness/swelling at site. Pressure dressing applied. Administered Medications: No medications were administered Medication: 16:46 VIS not applicable for this client. ph Outcome: 18:54 Discharge ordered by MD. leonard 19:08 Discharged to home ambulatory, with significant other, ph 19:08 Condition: good 19:08 Discharge instructions given to patient, Instructed on discharge instructions, follow up and referral plans. Demonstrated understanding of instructions, follow-up care, 19:08 Patient left the ED. ph Signatures: Dispatcher [employer] EDCT Lulu Nance, RN RN ph Pradeep Chavez MD MD sp3 Parul Taylor RN RN cm10 Courtney Hand6
[2024-05-21 00:29] VITALS: TEMP 98.3
[2024-05-21 00:32] VITALS: BP 104/67; O2SAT 99
--- NOTE | 2024-05-25 12:17 | EKG ---
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
== END 2024-05-20 19:08 | disposition home or self-care (01) ==
LOC: ER 15:29
DX: R07.89 Other chest pain (principal); F41.9 Anxiety disorder, unspecified
CPT/HCPCS: 36415; 71045; 80048; 80076; 83735; 83880; 84484; 85025; 85610; 93005; 99284